=== PATIENT | female | born 1955 | race Caucasian/White ===

== ENCOUNTER → 2023-12-22 | Outpatient (CLI) | payer MEDICARE, OTHER, SELFPAY ==
--- NOTE | 2023-12-22 12:22 | US_ITS ---
STUDY: THYROID ULTRASOUND REASON FOR EXAM: Female, 68 years old. thyroid nodules TECHNIQUE: Ultrasound evaluation of the thyroid was performed with real-time and static hazel-scale imaging. COMPARISON: None. FINDINGS: RIGHT LOBE: The right lobe of the thyroid gland measures 4.7 x 1.8 x 1.8 cm. There is a homogeneous echotexture. Some tiny (less than 5 mm) hypoechoic nodules consistent with adenomas. LEFT LOBE: The left lobe of the thyroid gland measures 4.6 x 2.1 x 2.1 cm. There is a homogeneous echotexture. Nodule 1:6 x 5 x 6 mm cystic anechoic wider than tall smoothly marginated nodule with no echogenic foci (TR 1) in the mid left lobe consistent with an colloid cyst. Nodule 2:22 x 18 x 20 mm solid isoechoic wider than tall ill-defined margin nodule with no echogenic foci (TR 3) in the inferior left lobe and follow-up ultrasound is recommended in one year. ISTHMUS: The isthmus measures 2 mm thick. . The regional lymph nodes are normal. US/Thyroid IMPRESSION: Dominant nodule left lobe and follow-up ultrasound is recommended in one year. Electronically Signed: Abilio Byrne MD at 18:20 EDT ,
== END | disposition home or self-care (01) ==
PROVIDERS: PCP Family Medicine; Referring Provider Nurse Practitioner Family; Visit Provider Nurse Practitioner Family
DX: E04.9 Nontoxic goiter, unspecified (principal)
CPT/HCPCS: 76536

== ENCOUNTER → 2024-04-03 | Outpatient (CLI) | payer MEDICARE, OTHER, SELFPAY ==
--- NOTE | 2024-04-03 08:58 | BD_ITS ---
STUDY: DUAL ENERGY X-RAY ABSORPTIOMETRY / DXA REASON FOR EXAM: Female, 68 years old. M81.0 - Age-related osteoporosis without current pathological ... TECHNIQUE: Bone Mineral Density (BMD) measurements of lumbar spine and bilateral hips were obtained. COMPARISON: None. FINDINGS: Lumbar Spine (L1-L4): g/cm2 (0.812) / T-score (-2.1) / Z-score (-0.1) Findings are suggestive of osteopenia with a high fracture risk. Left Femur Total: g/cm2 (0.764) / T-score (-1.5) / Z-score (0.0) Left Femoral Neck: g/cm2 (0.717) / T-score (-1.2) / Z-score (0.5) Right Femur Total: g/cm2 (0.742) / T-score (-1.6) / Z-score (-0.2) Right Femoral Neck: g/cm2 (0.674) / T-score (-1.6) / Z-score (0.2) BD/Dexa Bone Density Study IMPRESSION: The patient is considered osteopenic as outlined below according to [employer] Organization (WHO) criteria with a high fracture risk. Reference Information: The T-score is the number of standard deviations above or below the standard which is normal for young adults at their peak bone mineral density. The World Health Organization (WHO) interprets the T-scores as follows: Above -1 Normal bone density Between -1 and -2.5 Osteopenia Equal to / or below -2.5 Osteoporosis As a practical clinical guideline, osteopenia may be graded as follows: Mild -1 through -1.5 Moderate -1.6 through -2.0 Severe -2.1 through -2.4 The Z-score is the number of standard deviations above or below age-matched controls. A Z-score of less than -1.5 would be considered abnormal. References: 1. NIH Osteoporosis and Related Bone Diseases www osteo.org 2. International Society for Clinical Densitometry www iscd.org 3. National Osteoporosis Foundation www nof.org Electronically Signed: Deon Valles MD at 13:56 EDT ,
--- OUTSIDE RECORDS SUMMARY | 2024-04-03 09:33 | XMS RPT_ITS | CCD ---
Author Organization [facility] Care Team Providers Care Ethylbenzene Cracking Supervisor Name Role Phone Christiano Edna Unavailable Unavailable PROVIDER, UNKNOWN Unavailable Unavailable Dinah Hudson Unavailable Unavailable Edna Alvarado Unavailable Unavailable PROVIDER, UNKNOWN Unavailable Unavailable Dinah Hudson Unavailable Unavailable Maikel Heath Unavailable Unavailable Dinah Hudson Unavailable Unavailable Zeynep Pedroza Unavailable Unavailable Shun Diaz Unavailable Gary HUDSON MD, DR DINAH Valerio Primary Care Physician [phone] NOREEN MONCADA DO Attending Unavailable JAYDE MEEHAN, DR DINAH Valerio Primary Care Unavailab NOREEN Bonner DO Attending Unavailable JAYDE MEEHAN, DR DINAH Valerio Primary Care Unavailab Keesha MEEHAN, DR DINAH Valerio Attending Unavailab Keesha MEEHAN, DR DINAH Valerio Primary Care Unavailab NOREEN Bonner DO Attending Unavailable JAYDE MEEHAN, DR DINAH Valerio Primary Care Unavailab Keesha MEEHAN, DR DINAH Valerio Attending Unavailab dc HUDSON MD, DR DINAH Valerio Primary Care Unavailab NOREEN Bonner DO Attending Unavailable JAYDE MEEHAN, DR DINAH Valerio Primary Care Unavailab NOREEN Bonner DO Attending Unavailable JAYDE MEEHAN, DR DINAH Valerio Primary Care Unavailab NOREEN Bonner DO Attending Unavailable JAYDE MEEHAN, DR DINAH Valerio Primary Care Unavailab Keesha MEEHAN, DR DINAH Valerio Attending Ashley Thao MD, DR DINAH Valerio Primary Care Unavailab dc Medications Current Medications Medication Drug Class(es) Dates Sig (Normalized) Sig (Original) atorvastatin 20 mg oral tablet (6 sources) HMG-CoA Reductase Inhibitor Start: 02-06-2015 atorvastatin 20 mg oral tablet Dose : 20 mg = 1 tab(s), Oral, qDay, # 30 tab(s), 0 Refill(s) Start Date: 02/06/15 Status: Ordered canagliflozin 300 mg oral tablet (6 sources) Sodium-Glucose Cotransporter 2 Inhibitor Start: 02-06-2015 Invokana 300 mg oral tablet Dose : 300 mg = 1 tab(s), Oral, qDay, # 30 tab(s), 0 Refill(s) Start Date: 02/06/15 Status: Ordered glimepiride 1 mg oral tablet (6 sources) Sulfonylurea Start: 02-06-2015 glimepiride 1 mg oral tablet Dose : 1 mg = 1 tab(s), Oral, qDay, # 30 tab(s), 0 Refill(s) Start Date: 02/06/15 Status: Ordered hydroCHLOROthiazide 12.5 mg / valsartan 80 mg oral tablet (6 sources) Thiazide Diuretic, Angiotensin 2 Receptor Anabelle Start: 02-06-2015 take 1 tablet by mouth once daily Diovan HCT 80 mg-12.5 mg oral tablet (NF) Dose = 1 tab(s), Oral, Daily, 0 Refill(s) Start Date: 02/06/15 Status: Ordered 24 hr metFORMIN hydrochloride 1000 mg / SITagliptin 50 mg extended release oral tablet (6 sources) Biguanide, Dipeptidyl Peptidase 4 Inhibitor Start: 02-06-2015 take 1 tablet by mouth once daily in the evening Janumet 50 / 1000 mg extended release oral tablet (NF) Dose = 1 tab(s), Oral, qPM, # 30 tab(s), 0 Refill(s) Start Date: 02/06/15 Status: Ordered Problems Active Problems Problem Classification Problem Date Documented Date Episodic/Chronic Complications of surgical procedures or medical care (2 sources) Prolapse of vaginal vault after hysterectomy; Translations: [Prolapse of vaginal vault after hysterectomy] Onset: 07-27-2017 Chronic Diabetes mellitus without complication (2 sources) Type 2 diabetes mellitus without complications; Translations: [Type 2 diabetes mellitus without complications] Onset: 07-27-2017 Chronic Disorders of lipid metabolism (2 sources) Hyperlipidemia, unspecified; Translations: [Hyperlipidemia, unspecified] Onset: 07-27-2017 Chronic Diverticulosis and diverticulitis (2 sources) Diverticulitis of intestine, part unspecified, without perforation or abscess without bleeding; Translations: [Dvtrcli of intest, part unsp, w/o perf or abscess w/o bleed] Onset: 07-27-2017 Chronic Essential hypertension (2 sources) Essential (primary) hypertension; Translations: [Essential (primary) hypertension] Onset: 07-27-2017 Chronic Genitourinary symptoms and ill-defined conditions (2 sources) Stress incontinence (female) (male); Translations: [Stress incontinence (female) (male)] Onset: 07-27-2017 Other nutritional; endocrine; and metabolic disorders (2 sources) Overweight; Translations: [Overweight] Onset: 07-27-2017 Chronic Other nutritional; endocrine; and metabolic disorders (1 source) Hypomagnesemia; Translations: [Hypomagnesemia] Chronic Prolapse of female genital organs (6 sources) Cystocele, unspecified; Translations: [Uterovaginal prolapse, unspecified] Onset: 07-20-2017 Chronic Unclassified (2 sources) longterm (current) use of oral hypoglycemic drugs; Translations: [longterm (current) use of oral hypoglycemic drugs] Onset: 07-20-2017 Unclassified (1 source) Unknown / UNK(Unknown) Onset: 10-26-2017 Past or Other Problems Problem Classification Problem Date Documented Da te Episodic/Chronic Calculus of urinary tract (2 sources) Personal history of urinary calculi; Translations: [Personal history of urinary calculi] Onset: 07-27-2017 Episodic Medical examination/evaluation (2 sources) Encounter for other preprocedural examination; Translations: [Encounter for other preprocedural examination] Onset: 07-20-2017 Episodic Other circulatory disease (1 source) Bleeding Onset: 10-26-2017 Episodic Other female genital disorders (2 sources) Other noninflammatory disorders of ovary, fallopian tube and broad ligament; Translations: [Oth noninflammatory disord of ovary, fallop and broad ligmt] Onset: 07-27-2017 Episodic Other gastrointestinal disorders (2 sources) Peritoneal adhesions (postprocedural) (postinfection); Translations: [Peritoneal adhesions (postprocedural) (postinfection)] Onset: 07-27-2017 Episodic Unclassified (4 sources) Acquired absence of both cervix and uterus; Translations: [Body mass index (BMI) 27.0-27.9, adult] Onset: 07-27-2017 Episodic Results Test Name Value Interpretation Reference Range Facility MA MAMMOGRAM SCREENING CLARI Londono/Kaleb 02-28-2024 MA MAMMOGRAM SCREENING BILATERAL W/MASSIMO ORIGINAL FROM: [facility] [place] [id number] [place], [place] [address] PROCEDURE FOR: [place] [address] Home: PID#: [id number] Exam#: [id number] : 1955 Age: 68 TO: DINAH HUDSON MD [address] [place] [address] [address] [place], [place] [address] EXAMINATION: SCREENING DIGITAL BILATERAL MAMMOGRAM WITH TOMOSYNTHESIS, 02/23/2024 9:26 am TECHNIQUE: Screening mammography of the bilateral breasts was performed with tomosynthesis. 2D standard and 3D tomosynthesis combination imaging performed through both breasts in the MLO and CC projection. Computer aided detection was utilized in the interpretation of this exam. COMPARISON: January 06, 2023, November 06, 2021, October 21, 2020 HISTORY: Breast cancer screening. FINDINGS: BREAST DENSITY: There are scattered areas of fibroglandular density. There is no suspicious mass, architectural distortion or microcalcification. Fibroglandular pattern is stable. IMPRESSION: No mammographic evidence of malignancy. Continued screening with annual mammograms is recommended. Garry Bowmanzick risk calculations, generated with the history provided, report this patient's 10 year risk and lifetime risk for developing breast cancer at 7.2% and 12.9%, respectively. Based on this assessment tool, if the patient's calculated lifetime risk is below 20%, then the patient is considered at average risk for developing breast cancer. If the patient's calculated lifetime risk is at or above 20%, then the patient is considered high risk for developing breast cancer and may be a candidate for supplemental breast MRI screening in addition to annual mammographic screening per the [employer]. BIRADS: MAMMOGRAM BI-RADS: 1: Negative RECALL: 1 year screening RECALL TYPE: mammo LETTER SENT: Normal BI-RADS 1 and 2 Interpreted by: Lyndsey Zamora Preliminary Report By: Lyndsey Zamora Electronically signed By Lyndsey Zamora Dictated Date: 02/28/2024 8:22:12 AM Prelim Date: 02/28/2024 8:37:41 AM Sign Date: 02/28/2024 8:37:41 AM Ordering Provider: DINAH HUDSON Digital Account Manager: GONZALEZ GRAHAM RT (R)(M) letter sent: Normal BI-RADS 1 and 2 Mammogram BI-RADS: 1 Negative Normal [facility] MGon 07-28-2023 Magnesium [Mass/Vol] 1.8 mg/dL Normal 1.8-2.4 [facility] ([place]) Comment on above: Performed By: #### C MP, TSH, MG, GFR, A1C #### [address] [address] .GFRon 07-07-2023 GFR 112 ml/min/1.73sqm Normal [facility] ([place]) Comment on above: Result Comment: GFR Population mean for , Non- Americans Ages 20-29 = 116 mL/min/1.73 sq.m. Ages 30-39 = 107 mL/min/1.73 sq.m. Ages 40-49 = 99 mL/min/1.73 sq.m. Ages 50-59 = 93 mL/min/1.73 sq.m. Ages 60-69 = 85 mL/min/1.73 sq.m. Ages 70+ = 75 mL/min/1.73 sq.m. Chronic Kidney Disease: Less than 60 mL/min/1.73 square meters End Stage Renal Disease: Less than 15 mL/min/1.73 square meters Performed By: #### C MP, TSH, MG, GFR, A1C #### [address] [address] GFR Non- 92 ml/min/1.73sqm Normal [facility] ([place]) Comment on above: Result Comment: GFR Population mean for , Non- Americans Ages 20-29 = 116 mL/min/1.73 sq.m. Ages 30-39 = 107 mL/min/1.73 sq.m. Ages 40-49 = 99 mL/min/1.73 sq.m. Ages 50-59 = 93 mL/min/1.73 sq.m. Ages 60-69 = 85 mL/min/1.73 sq.m. Ages 70+ = 75 mL/min/1.73 sq.m. Chronic Kidney Disease: Less than 60 mL/min/1.73 square meters End Stage Renal Disease: Less than 15 mL/min/1.73 square meters Performed By: #### C MP, TSH, MG, GFR, A1C #### [address] [address] A1Con 07-07-2023 HbA1c (Bld) [Mass fraction] 6.1 % Normal 4.3-6.4 [facility] ([place]) Comment on above: Performed By: #### C MP, TSH, MG, GFR, A1C #### [address] [address] CMPon 07-07-2023 Albumin Level 3.9 G/dL Normal 3.4-4.8 [facility] ([place]) Comment on above: Performed By: #### C MP, TSH, MG, GFR, A1C #### [address] [address] Albumin/Globulin [Mass ratio] 1.6 {ratio} Normal 1.1-2.5 [facility] ([place]) Comment on above: Performed By: #### C MP, TSH, MG, GFR, A1C #### [address] [address] ALP [Catalytic activity/Vol] 57 U/L Normal 40-135 [facility] ([place]) Comment on above: Performed By: #### C MP, TSH, MG, GFR, A1C #### [address] [address] ALT [Catalytic activity/Vol] 20 U/L Normal 14-59 [facility] ([place]) Comment on above: Performed By: #### C MP, TSH, MG, GFR, A1C #### [address] [address] AST [Catalytic activity/Vol] 16 U/L Normal 10-40 [facility] ([place]) Comment on above: Performed By: #### C MP, TSH, MG, GFR, A1C #### [address] [address] Bili Total 0.7 mg/dL Normal 0.2-1.0 [facility] ([place]) Comment on above: Result Comment: Use of this assay is not recommended for patients undergoing treatment with eltrombopag due to the potential for falsely elevated results. Performed By: #### C MP, TSH, MG, GFR, A1C #### [address] [address] BUN/Creatinine Ratio 23 ratio Normal 7-27 [facility] ([place]) Comment on above: Performed By: #### C MP, TSH, MG, GFR, A1C #### [address] [address] Calcium [Mass/Vol] 9.8 mg/dL Normal 8.4-10.2 [facility] ([place]) Comment on above: Performed By: #### C MP, TSH, MG, GFR, A1C #### [address] [address] Chloride [Moles/Vol] 102 mmol/L Normal 98-107 [facility] ([place]) Comment on above: Performed By: #### C MP, TSH, MG, GFR, A1C #### [address] [address] CO2 [Moles/Vol] 34 mmol/L High 23-31 [facility] ([place]) Comment on above: Performed By: #### C MP, TSH, MG, GFR, A1C #### [address] [address] Creatinine [Mass/Vol] 0.64 mg/dL Normal 0.55-1.02 [facility] ([place]) Comment on above: Performed By: #### C MP, TSH, MG, GFR, A1C #### [address] [address] Electrolyte Balance 10.0 mEq/L Normal 4.0-15.0 [facility] ([place]) Comment on above: Performed By: #### C MP, TSH, MG, GFR, A1C #### [address] [address] Globulin 2.4 G/dL Normal [facility] ([place]) Comment on above: Performed By: #### C MP, TSH, MG, GFR, A1C #### [address] [address] Glucose [Mass/Vol] 124 mg/dL High 80-115 [facility] ([place]) Comment on above: Performed By: #### C MP, TSH, MG, GFR, A1C #### [address] [address] Potassium [Moles/Vol] 4.0 mmol/L Normal 3.5-5.1 [facility] ([place]) Comment on above: Performed By: #### C MP, TSH, MG, GFR, A1C #### [address] [address] Sodium [Moles/Vol] 146 mmol/L High 136-145 [facility] ([place]) Comment on above: Performed By: #### C MP, TSH, MG, GFR, A1C #### [address] [address] Total Protein 6.3 G/dL Low 6.4-8.2 [facility] ([place]) Comment on above: Performed By: #### C MP, TSH, MG, GFR, A1C #### [address] [address] Urea nitrogen [Mass/Vol] 15 mg/dL Normal 7-18 [facility] ([place]) Comment on above: Performed By: #### C MP, TSH, MG, GFR, A1C #### [address] [address] MGon 07-07-2023 Magnesium [Mass/Vol] 1.5 mg/dL Low 1.8-2.4 [facility] ([place]) Comment on above: Performed By: #### C MP, TSH, MG, GFR, A1C #### [address] [address] TSHon 07-07-2023 TSH Qn 1.26 m[IU]/L Normal 0.36-3.74 [facility] ([place]) Comment on above: Performed By: #### C MP, TSH, MG, GFR, A1C #### [address] [address] .Auto Diffon 04-26-2023 Basophil, Absolute 0.0 10 3/mcL Normal 0.0-0.2 [facility] ([place]) Comment on above: Performed By: #### C MP, TSH, MG, GFR, A1C #### [address] [address] Basophils/100 WBC (Bld) 0.5 % Normal 0.0-2.5 [facility] ([place]) Comment on above: Performed By: #### C MP, TSH, MG, GFR, A1C #### [address] [address] Eosinophil, Absolute 0.1 10 3/mcL Normal 0.0-0.4 [facility] ([place]) Comment on above: Performed By: #### C MP, TSH, MG, GFR, A1C #### [address] [address] Eosinophils/100 WBC (Bld) 1.4 % Normal 0.0-7.0 [facility] ([place]) Comment on above: Performed By: #### C MP, TSH, MG, GFR, A1C #### [address] [address] Lymphocyte, Absolute 1.8 10 3/mcL Normal 0.8-3.9 [facility] ([place]) Comment on above: Performed By: #### C MP, TSH, MG, GFR, A1C #### [address] [address] Lymphocytes/100 WBC (Bld) 31.2 % Normal 10.0-50.0 [facility] ([place]) Comment on above: Performed By: #### C MP, TSH, MG, GFR, A1C #### [address] [address] Monocyte, Absolute 0.4 10 3/mcL Normal 0.2-1.0 [facility] ([place]) Comment on above: Performed By: #### C MP, TSH, MG, GFR, A1C #### [address] [address] Monocytes/100 WBC (Bld) 7.4 % Normal 1.7-13.0 [facility] ([place]) Comment on above: Performed By: #### C MP, TSH, MG, GFR, A1C #### [address] [address] Neutrophils/100 WBC (Bld) 59.5 % Normal 37.0-80.0 [facility] ([place]) Comment on above: Performed By: #### C MP, TSH, MG, GFR, A1C #### [address] [address] .NEUABSon 04-26-2023 Neutrophil, Absolute 3.4 10 3/mcL Normal 2.9-6.2 [facility] ([place]) Comment on above: Performed By: #### C MP, TSH, MG, GFR, A1C #### [address] [address] CBCon 04-26-2023 Erythrocyte distribution width (RBC) [Ratio] 14.0 % Normal 11.5-14.5 [facility] ([place]) Comment on above: Performed By: #### C MP, TSH, MG, GFR, A1C #### [address] [address] Hematocrit (Bld) [Volume fraction] 40.6 % Normal 37.0-47.0 [facility] ([place]) Comment on above: Performed By: #### C MP, TSH, MG, GFR, A1C #### [address] [address] Hgb 13.9 G/dL Normal 12.0-16.0 [facility] ([place]) Comment on above: Performed By: #### C MP, TSH, MG, GFR, A1C #### [address] [address] MCH (RBC) [Entitic mass] 30.3 pg Normal 27.0-31.2 [facility] ([place]) Comment on above: Performed By: #### C MP, TSH, MG, GFR, A1C #### [address] [address] MCHC 34.2 G/dL Normal 33.0-37.0 [facility] ([place]) Comment on above: Performed By: #### C MP, TSH, MG, GFR, A1C #### [address] [address] MCV (RBC) [Entitic vol] 88.7 fL Normal 80.0-94.0 [facility] ([place]) Comment on above: Performed By: #### C MP, TSH, MG, GFR, A1C #### [address] [address] Platelet 205 10 3/mcL Normal 130-400 [facility] ([place]) Comment on above: Performed By: #### C MP, TSH, MG, GFR, A1C #### [address] [address] Platelet mean volume (Bld) [Entitic vol] 8.3 fL Normal 7.4-10.4 [facility] ([place]) Comment on above: Performed By: #### C MP, TSH, MG, GFR, A1C #### [address] [address] RBC 4.57 10 6/mcL Normal 4.20-5.40 [facility] ([place]) Comment on above: Performed By: #### C MP, TSH, MG, GFR, A1C #### [address] [address] WBC 5.7 10 3/mcL Normal 4.6-10.8 [facility] ([place]) Comment on above: Performed By: #### C MP, TSH, MG, GFR, A1C #### [address] [address] FEon 04-26-2023 Iron [Mass/Vol] 82 ug/dL Normal 50-170 [facility] ([place]) Comment on above: Performed By: #### C MP, TSH, MG, GFR, A1C #### [address] [address] Kennedi 04-26-2023 Ferritin [Mass/Vol] 27.0 ng/mL Normal 8.0-252.0 [facility] ([place]) Comment on above: Performed By: #### C MP, TSH, MG, GFR, A1C #### [address] [address] .GFRon 03-17-2023 GFR Non- 91 ml/min/1.73sqm Normal [facility] ([place]) Comment on above: Result Comment: GFR Population mean for , Non- Americans Ages 20-29 = 116 mL/min/1.73 sq.m. Ages 30-39 = 107 mL/min/1.73 sq.m. Ages 40-49 = 99 mL/min/1.73 sq.m. Ages 50-59 = 93 mL/min/1.73 sq.m. Ages 60-69 = 85 mL/min/1.73 sq.m. Ages 70+ = 75 mL/min/1.73 sq.m. Chronic Kidney Disease: Less than 60 mL/min/1.73 square meters End Stage Renal Disease: Less than 15 mL/min/1.73 square meters Performed By: #### C MP, TSH, MG, GFR, A1C #### [address] [address] GFR 110 ml/min/1.73sqm Normal [facility] ([place]) Comment on above: Result Comment: GFR Population mean for , Non- Americans Ages 20-29 = 116 mL/min/1.73 sq.m. Ages 30-39 = 107 mL/min/1.73 sq.m. Ages 40-49 = 99 mL/min/1.73 sq.m. Ages 50-59 = 93 mL/min/1.73 sq.m. Ages 60-69 = 85 mL/min/1.73 sq.m. Ages 70+ = 75 mL/min/1.73 sq.m. Chronic Kidney Disease: Less than 60 mL/min/1.73 square meters End Stage Renal Disease: Less than 15 mL/min/1.73 square meters Performed By: #### C MP, TSH, MG, GFR, A1C #### [address] [address] A1Con 03-17-2023 HbA1c (Bld) [Mass fraction] 6.1 % Normal 4.3-6.4 [facility] ([place]) Comment on above: Performed By: #### C MP, TSH, MG, GFR, A1C #### [address] [address] CMPon 03-17-2023 Albumin Level 4.1 G/dL Normal 3.4-4.8 [facility] ([place]) Comment on above: Performed By: #### C MP, TSH, MG, GFR, A1C #### [address] [address] Albumin/Globulin [Mass ratio] 1.8 {ratio} Normal 1.1-2.5 [facility] ([place]) Comment on above: Performed By: #### C MP, TSH, MG, GFR, A1C #### [address] [address] ALP [Catalytic activity/Vol] 62 U/L Normal 40-135 [facility] ([place]) Comment on above: Performed By: #### C MP, TSH, MG, GFR, A1C #### [address] [address] ALT [Catalytic activity/Vol] 19 U/L Normal 14-59 [facility] ([place]) Comment on above: Performed By: #### C MP, TSH, MG, GFR, A1C #### [address] [address] AST [Catalytic activity/Vol] 16 U/L Normal 10-40 [facility] ([place]) Comment on above: Performed By: #### C MP, TSH, MG, GFR, A1C #### [address] [address] Bili Total 0.9 mg/dL Normal 0.2-1.0 [facility] ([place]) Comment on above: Result Comment: Use of this assay is not recommended for patients undergoing treatment with eltrombopag due to the potential for falsely elevated results. Performed By: #### C MP, TSH, MG, GFR, A1C #### [address] [address] BUN/Creatinine Ratio 29 ratio High 7-27 [facility] ([place]) Comment on above: Performed By: #### C MP, TSH, MG, GFR, A1C #### [address] [address] Calcium [Mass/Vol] 9.1 mg/dL Normal 8.4-10.2 [facility] ([place]) Comment on above: Performed By: #### C MP, TSH, MG, GFR, A1C #### [address] [address] Chloride [Moles/Vol] 103 mmol/L Normal 98-107 [facility] ([place]) Comment on above: Performed By: #### C MP, TSH, MG, GFR, A1C #### [address] [address] CO2 [Moles/Vol] 33 mmol/L High 23-31 [facility] ([place]) Comment on above: Performed By: #### C MP, TSH, MG, GFR, A1C #### [address] [address] Creatinine [Mass/Vol] 0.65 mg/dL Normal 0.55-1.02 [facility] ([place]) Comment on above: Performed By: #### C MP, TSH, MG, GFR, A1C #### [address] [address] Electrolyte Balance 6.0 mEq/L Normal 4.0-15.0 [facility] ([place]) Comment on above: Performed By: #### C MP, TSH, MG, GFR, A1C #### [address] [address] Globulin 2.3 G/dL Normal [facility] ([place]) Comment on above: Performed By: #### C MP, TSH, MG, GFR, A1C #### [address] [address] Glucose [Mass/Vol] 122 mg/dL High 80-115 [facility] ([place]) Comment on above: Performed By: #### C MP, TSH, MG, GFR, A1C #### [address] [address] Potassium [Moles/Vol] 4.3 mmol/L Normal 3.5-5.1 [facility] ([place]) Comment on above: Performed By: #### C MP, TSH, MG, GFR, A1C #### [address] [address] Sodium [Moles/Vol] 142 mmol/L Normal 136-145 [facility] ([place]) Comment on above: Performed By: #### C MP, TSH, MG, GFR, A1C #### [address] [address] Total Protein 6.4 G/dL Normal 6.4-8.2 [facility] ([place]) Comment on above: Performed By: #### C MP, TSH, MG, GFR, A1C #### [address] [address] Urea nitrogen [Mass/Vol] 19 mg/dL High 7-18 [facility] ([place]) Comment on above: Performed By: #### C MP, TSH, MG, GFR, A1C #### [address] [address] LABORATORYOrdered By: SYSTEM SYSTEM on 03-17-2023 Albumin BCP dye [Mass/Vol] 4.1 G/dL Invalid Interpretation Code 3.4 - 4.8 G/dL AO ADM SS Albumin/Globulin [Mass ratio] 1.8 {ratio} Invalid Interpretation Code 1.1 - 2.5 ratio AO ADM SS ALP [Catalytic activity/Vol] 62 U/L Invalid Interpretation Code 40 - 135 U/L AO ADM SS ALT With P-5'-P [Catalytic activity/Vol] 19 U/L Invalid Interpretation Code 14 - 59 U/L AO ADM SS AST With P-5'-P [Catalytic activity/Vol] 16 U/L Invalid Interpretation Code 10 - 40 U/L AO ADM SS Bilirubin [Mass/Vol] 0.9 mg/dL Invalid Interpretation Code 0.2 - 1.0 mg/dL AO ADM SS Comment on above: Interpretive Data: U se of this assay is not recommended for patients undergoing treatment with eltrombopag due to the potential for falsely elevated results. Calcium [Mass/Vol] 9.1 mg/dL Invalid Interpretation Code 8.4 - 10.2 mg/dL AO ADM SS Chloride [Moles/Vol] 103 mmol/L Invalid Interpretation Code 98 - 107 mmol/L AO ADM SS CO2 [Moles/Vol] 33 mmol/L Invalid Interpretation Code 23 - 31 mmol/L AO ADM SS Creatinine [Mass/Vol] 0.65 mg/dL Invalid Interpretation Code 0.55 - 1.02 mg/dL AO ADM SS Electrolyte Balance 6.0 mEq/L Invalid Interpretation Code 4.0 - 15.0 mEq/L AO ADM SS GFR/1.73 sq M.predicted among blacks MDRD (S/P/Bld) [Vol rate/Area] 110 ml/min/1.73sqm Invalid Interpretation Code AO Chemistry S Comment on above: Interpretive Data: GFR Population mean for , Non- Americans Ages 20-29 = 116 mL/min/1.73 sq.m. Ages 30-39 = 107 mL/min/1.73 sq.m. Ages 40-49 = 99 mL/min/1.73 sq.m. Ages 50-59 = 93 mL/min/1.73 sq.m. Ages 60-69 = 85 mL/min/1.73 sq.m. Ages 70+ = 75 mL/min/1.73 sq.m. Chronic Kidney Disease: Less than 60 mL/min/1.73 square meters End Stage Renal Disease: Less than 15 mL/min/1.73 square meters GFR/1.73 sq M.predicted among non-blacks MDRD (S/P/Bld) [Vol rate/Area] 91 ml/min/1.73sqm Invalid Interpretation Code AO Chemistry S Comment on above: Interpretive Data: GFR Population mean for , Non- Americans Ages 20-29 = 116 mL/min/1.73 sq.m. Ages 30-39 = 107 mL/min/1.73 sq.m. Ages 40-49 = 99 mL/min/1.73 sq.m. Ages 50-59 = 93 mL/min/1.73 sq.m. Ages 60-69 = 85 mL/min/1.73 sq.m. Ages 70+ = 75 mL/min/1.73 sq.m. Chronic Kidney Disease: Less than 60 mL/min/1.73 square meters End Stage Renal Disease: Less than 15 mL/min/1.73 square meters Globulin 2.3 G/dL Invalid Interpretation Code AO ADM SS Glucose [Mass/Vol] 122 mg/dL Invalid Interpretation Code 80 - 115 mg/dL AO ADM SS HbA1c (Bld) [Mass fraction] 6.1 % Invalid Interpretation Code 4.3 - 6.4 % AO ADM SS Potassium [Moles/Vol] 4.3 mmol/L Invalid Interpretation Code 3.5 - 5.1 mmol/L AO ADM SS Protein [Mass/Vol] 6.4 G/dL Invalid Interpretation Code 6.4 - 8.2 G/dL AO ADM SS Sodium [Moles/Vol] 142 mmol/L Invalid Interpretation Code 136 - 145 mmol/L AO ADM SS Urea nitrogen [Mass/Vol] 19 mg/dL Invalid Interpretation Code 7 - 18 mg/dL AO ADM SS Urea nitrogen/Creatinin e [Mass ratio] 29 ratio Invalid Interpretation Code 7 - 27 ratio AO ADM SS LABORATORYOrdered By: Jayde Salazar on 03-17-2023 Cholesterol [Mass/Vol] 101 mg/dL Invalid Interpretation Code 0 - 200 mg/dL AO ADM SS Comment on above: Interpretive Data: C holesterol Reference Interval: Less than 200 Desirable 200-239 Borderline high risk 240 and above High risk Cholesterol in HDL [Mass/Vol] 43 mg/dL Invalid Interpretation Code 40 - 60 mg/dL AO ADM SS Cholesterol in LDL [Mass/Vol] 34 mg/dL Invalid Interpretation Code 0 - 130 mg/dL AO ADM SS Triglyceride [Mass/Vol] 122 mg/dL Invalid Interpretation Code 0 - 150 mg/dL AO ADM SS Comment on above: Interpretive Data: T riglyceride Reference Interval: Less than 150 Normal 150-199 Borderline high risk 200-499 High risk 500 or higher Very high risk LIPIDon 03-17-2023 Cholesterol [Mass/Vol] 101 mg/dL Normal 0-200 [facility] ([place]) Comment on above: Result Comment: Chol esterol Reference Interval: Less than 200 Desirable 200-239 Borderline high risk 240 and above High risk Performed By: #### C MP, TSH, MG, GFR, A1C #### [address] [address] Cholesterol in HDL [Mass/Vol] 43 mg/dL Normal 40-60 [facility] ([place]) Comment on above: Performed By: #### C MP, TSH, MG, GFR, A1C #### [address] [address] Cholesterol in LDL [Mass/Vol] 34 mg/dL Normal 0-130 [facility] ([place]) Comment on above: Performed By: #### C MP, TSH, MG, GFR, A1C #### [address] [address] Triglyceride [Mass/Vol] 122 mg/dL Normal 0-150 [facility] ([place]) Comment on above: Result Comment: Trig lyceride Reference Interval: Less than 150 Normal 150-199 Borderline high risk 200-499 High risk 500 or higher Very high risk Performed By: #### C MP, TSH, MG, GFR, A1C #### [address] [address] [place] MAMMOGRAM SCREENING BILAT ERAL W/TOMOon 01-06-2023 MA MAMMOGRAM SCREENING BILATERAL W/MASSIMO ORIGINAL FROM: [address] [address] PROCEDURE FOR: [place] [id number] Home: PID#: [id number] Exam#: [id number] : 1955 Age: 67 TO: DINAH HUDSON MD [address] [place] [address] EXAMINATION: SCREENING DIGITAL BILATERAL MAMMOGRAM WITH TOMOSYNTHESIS, 01/06/2023 8:40 am TECHNIQUE: Screening mammography of the bilateral breasts was performed with tomosynthesis. 2D standard and 3D tomosynthesis combination imaging performed through both breasts in the MLO and CC projection. Computer aided detection was utilized in the interpretation of this exam. COMPARISON: 11/06/2021, 10/21/2020 HISTORY: Breast cancer screening FINDINGS: BREAST DENSITY: Scattered fibroglandular tissue There are no significant masses or calcifications. IMPRESSION: No mammographic evidence of malignancy. Continued screening with annual mammograms is recommended. BIRADS: MAMMOGRAM BI-RADS: 1: Negative RECALL: 1 year screening RECALL TYPE: mammo LETTER SENT: Normal BI-RADS 1 and 2 Interpreted by: Dorothy Freeman MD Preliminary Report By: Dorothy Freeman MD Electronically signed By Dorothy Freeman MD Dictated Date: 01/06/2023 8:51:31 PM Prelim Date: 01/06/2023 8:59:31 PM Sign Date: 01/06/2023 8:59:31 PM Ordering Provider: DINAH HUDSON Digital Account Manager: ALMA SAXENA RT (R) (M) (CT) letter sent: Normal BI-RADS 1 and 2 Mammogram BI-RADS: 1 Negative Normal [facility] ([place]) .GFRon 12-12-2022 GFR 108 ml/min/1.73sqm Normal [facility] ([place]) Comment on above: Result Comment: GFR Population mean for , Non- Americans Ages 20-29 = 116 mL/min/1.73 sq.m. Ages 30-39 = 107 mL/min/1.73 sq.m. Ages 40-49 = 99 mL/min/1.73 sq.m. Ages 50-59 = 93 mL/min/1.73 sq.m. Ages 60-69 = 85 mL/min/1.73 sq.m. Ages 70+ = 75 mL/min/1.73 sq.m. Chronic Kidney Disease: Less than 60 mL/min/1.73 square meters End Stage Renal Disease: Less than 15 mL/min/1.73 square meters Performed By: #### C MP, TSH, MG, GFR, A1C #### Perfecto [address] [address] GFR Non- 89 ml/min/1.73sqm Normal [facility] ([place]) Comment on above: Result Comment: GFR Population mean for , Non- Americans Ages 20-29 = 116 mL/min/1.73 sq.m. Ages 30-39 = 107 mL/min/1.73 sq.m. Ages 40-49 = 99 mL/min/1.73 sq.m. Ages 50-59 = 93 mL/min/1.73 sq.m. Ages 60-69 = 85 mL/min/1.73 sq.m. Ages 70+ = 75 mL/min/1.73 sq.m. Chronic Kidney Disease: Less than 60 mL/min/1.73 square meters End Stage Renal Disease: Less than 15 mL/min/1.73 square meters Performed By: #### C MP, TSH, MG, GFR, A1C #### [address] [address] A1Con 12-12-2022 HbA1c (Bld) [Mass fraction] 6.0 % Normal 4.3-6.4 [facility] ([place]) Comment on above: Performed By: #### C MP, TSH, MG, GFR, A1C #### [address] [address] CMPon 12-12-2022 Albumin Level 3.9 G/dL Normal 3.4-4.8 [facility] ([place]) Comment on above: Performed By: #### C MP, TSH, MG, GFR, A1C #### [address] [address] Albumin/Globulin [Mass ratio] 1.7 {ratio} Normal 1.1-2.5 [facility] ([place]) Comment on above: Performed By: #### C MP, TSH, MG, GFR, A1C #### [address] [address] ALP [Catalytic activity/Vol] 53 U/L Normal 40-135 [facility] ([place]) Comment on above: Performed By: #### C MP, TSH, MG, GFR, A1C #### [address] [address] ALT [Catalytic activity/Vol] 20 U/L Normal 14-59 [facility] ([place]) Comment on above: Performed By: #### C MP, TSH, MG, GFR, A1C #### [address] [address] AST [Catalytic activity/Vol] 18 U/L Normal 10-40 [facility] ([place]) Comment on above: Performed By: #### C MP, TSH, MG, GFR, A1C #### [address] [address] Bili Total 0.8 mg/dL Normal 0.2-1.0 [facility] ([place]) Comment on above: Result Comment: Use of this assay is not recommended for patients undergoing treatment with eltrombopag due to the potential for falsely elevated results. Performed By: #### C MP, TSH, MG, GFR, A1C #### [address] [address] BUN/Creatinine Ratio 27 ratio Normal 7-27 [facility] ([place]) Comment on above: Performed By: #### C MP, TSH, MG, GFR, A1C #### [address] [address] Calcium [Mass/Vol] 9.1 mg/dL Normal 8.4-10.2 [facility] ([place]) Comment on above: Performed By: #### C MP, TSH, MG, GFR, A1C #### [address] [address] Chloride [Moles/Vol] 104 mmol/L Normal 98-107 [facility] ([place]) Comment on above: Performed By: #### C MP, TSH, MG, GFR, A1C #### [address] [address] CO2 [Moles/Vol] 34 mmol/L High 23-31 [facility] ([place]) Comment on above: Performed By: #### C MP, TSH, MG, GFR, A1C #### [address] [address] Creatinine [Mass/Vol] 0.66 mg/dL Normal 0.55-1.02 [facility] ([place]) Comment on above: Performed By: #### C MP, TSH, MG, GFR, A1C #### [address] [address] Electrolyte Balance 5.0 mEq/L Normal 4.0-15.0 [facility] ([place]) Comment on above: Performed By: #### C MP, TSH, MG, GFR, A1C #### [address] [address] Globulin 2.3 G/dL Normal [facility] ([place]) Comment on above: Performed By: #### C MP, TSH, MG, GFR, A1C #### [address] [address] Glucose [Mass/Vol] 84 mg/dL Normal 80-115 [facility] ([place]) Comment on above: Performed By: #### C MP, TSH, MG, GFR, A1C #### [address] [address] Potassium [Moles/Vol] 4.1 mmol/L Normal 3.5-5.1 [facility] ([place]) Comment on above: Performed By: #### C MP, TSH, MG, GFR, A1C #### [address] [address] Sodium [Moles/Vol] 143 mmol/L Normal 136-145 [facility] ([place]) Comment on above: Performed By: #### C MP, TSH, MG, GFR, A1C #### [address] [address] Total Protein 6.2 G/dL Low 6.4-8.2 [facility] ([place]) Comment on above: Performed By: #### C MP, TSH, MG, GFR, A1C #### [address] [address] Urea nitrogen [Mass/Vol] 18 mg/dL Normal 7-18 [facility] ([place]) Comment on above: Performed By: #### C MP, TSH, MG, GFR, A1C #### [address] [address] MGon 12-12-2022 Magnesium [Mass/Vol] 1.8 mg/dL Normal 1.8-2.4 [facility] ([place]) Comment on above: Performed By: #### C MP, TSH, MG, GFR, A1C #### [place] [address] [address] LABORATORYOrdered By: SYSTEM SYSTEM on 09-20-2022 Magnesium [Mass/Vol] 1.9 mg/dL Invalid Interpretation Code 1.8 - 2.4 mg/dL AO ADM SS MGon 09-20-2022 Magnesium [Mass/Vol] 1.9 mg/dL Normal 1.8-2.4 [facility] ([place]) Comment on above: Performed By: #### C MP, TSH, MG, GFR, A1C #### [place] [address] [address] .GFROrdered By: SYSTEM SYSTE M on 09-01-2022 GFR Non- 94 ml/min/1.73sqm Normal AO Chemistry S Comment on above: Result Comment: GFR Population mean for , Non- Americans Ages 20-29 = 116 mL/min/1.73 sq.m. Ages 30-39 = 107 mL/min/1.73 sq.m. Ages 40-49 = 99 mL/min/1.73 sq.m. Ages 50-59 = 93 mL/min/1.73 sq.m. Ages 60-69 = 85 mL/min/1.73 sq.m. Ages 70+ = 75 mL/min/1.73 sq.m. Chronic Kidney Disease: Less than 60 mL/min/1.73 square meters End Stage Renal Disease: Less than 15 mL/min/1.73 square meters Performed By: #### C MP, TSH, MG, GFR, A1C #### [place] [address] [address] GFR 114 ml/min/1.73sqm Normal AO Chemistry S Comment on above: Result Comment: GFR Population mean for , Non- Americans Ages 20-29 = 116 mL/min/1.73 sq.m. Ages 30-39 = 107 mL/min/1.73 sq.m. Ages 40-49 = 99 mL/min/1.73 sq.m. Ages 50-59 = 93 mL/min/1.73 sq.m. Ages 60-69 = 85 mL/min/1.73 sq.m. Ages 70+ = 75 mL/min/1.73 sq.m. Chronic Kidney Disease: Less than 60 mL/min/1.73 square meters End Stage Renal Disease: Less than 15 mL/min/1.73 square meters Performed By: #### C MP, TSH, MG, GFR, A1C #### [address] [address] [id number] By: SYSTEM SYSTEM on 09-01-2022 HbA1c (Bld) [Mass fraction] 5.7 % Normal 4.3-6.4 AO ADM SS Comment on above: Performed By: #### V IDH, CMP, MG, TSH, LIP, GFR, A1C #### [address] [address] #### PTH #### [place] [address] CMPon 09-01-2022 Albumin Level 4.4 G/dL Normal 3.4-4.8 [facility] ([place]) Comment on above: Performed By: #### C MP, TSH, MG, GFR, A1C #### [address] [address] ALT [Catalytic activity/Vol] 21 U/L Normal 14-59 [facility] ([place]) Comment on above: Performed By: #### C MP, TSH, MG, GFR, A1C #### [address] [address] AST [Catalytic activity/Vol] 18 U/L Normal 10-40 [facility] ([place]) Comment on above: Performed By: #### C MP, TSH, MG, GFR, A1C #### [address] [address] Bili Total 0.9 mg/dL Normal 0.2-1.0 [facility] ([place]) Comment on above: Result Comment: Use of this assay is not recommended for patients undergoing treatment with eltrombopag due to the potential for falsely elevated results. Performed By: #### C MP, TSH, MG, GFR, A1C #### [address] [address] BUN/Creatinine Ratio 37 ratio High 7-27 [facility] ([place]) Comment on above: Performed By: #### C MP, TSH, MG, GFR, A1C #### [address] [address] Total Protein 6.7 G/dL Normal 6.4-8.2 [facility] ([place]) Comment on above: Performed By: #### C MP, TSH, MG, GFR, A1C #### [address] [address] CMPOrdered By: SYSTEM SYSTEM on 09-01-2022 Albumin/Globulin [Mass ratio] 1.9 {ratio} Normal 1.1-2.5 AO ADM SS Comment on above: Performed By: #### C MP, TSH, MG, GFR, A1C #### [address] [address] ALP [Catalytic activity/Vol] 66 U/L Normal 40-135 AO ADM SS Comment on above: Performed By: #### C MP, TSH, MG, GFR, A1C #### [address] [address] Calcium [Mass/Vol] 9.5 mg/dL Normal 8.4-10.2 AO ADM SS Comment on above: Performed By: #### C MP, TSH, MG, GFR, A1C #### [address] [address] Chloride [Moles/Vol] 102 mmol/L Normal 98-107 AO ADM SS Comment on above: Performed By: #### C MP, TSH, MG, GFR, A1C #### [address] [address] CO2 [Moles/Vol] 34 mmol/L High 23-31 AO ADM SS Comment on above: Performed By: #### C MP, TSH, MG, GFR, A1C #### [address] [address] Creatinine [Mass/Vol] 0.63 mg/dL Normal 0.55-1.02 AO ADM SS Comment on above: Performed By: #### C MP, TSH, MG, GFR, A1C #### [address] [address] Electrolyte Balance 6.0 mEq/L Normal 4.0-15.0 AO ADM SS Comment on above: Performed By: #### C MP, TSH, MG, GFR, A1C #### [address] [address] Globulin 2.3 G/dL Normal AO ADM SS Comment on above: Performed By: #### C MP, TSH, MG, GFR, A1C #### [address] [address] Glucose [Mass/Vol] 101 mg/dL Normal 80-115 AO ADM SS Comment on above: Performed By: #### C MP, TSH, MG, GFR, A1C #### [address] [address] Potassium [Moles/Vol] 4.2 mmol/L Normal 3.5-5.1 AO ADM SS Comment on above: Performed By: #### C MP, TSH, MG, GFR, A1C #### [address] [address] Sodium [Moles/Vol] 142 mmol/L Normal 136-145 AO ADM SS Comment on above: Performed By: #### C MP, TSH, MG, GFR, A1C #### [address] [address] Urea nitrogen [Mass/Vol] 23 mg/dL High 7-18 AO ADM SS Comment on above: Performed By: #### C MP, TSH, MG, GFR, A1C #### [address] [address] LABORATORYOrdered By: SYSTEM SYSTEM on 09-01-2022 Albumin BCP dye [Mass/Vol] 4.4 G/dL Invalid Interpretation Code 3.4 - 4.8 G/dL AO ADM SS ALT With P-5'-P [Catalytic activity/Vol] 21 U/L Invalid Interpretation Code 14 - 59 U/L AO ADM SS AST With P-5'-P [Catalytic activity/Vol] 18 U/L Invalid Interpretation Code 10 - 40 U/L AO ADM SS Bilirubin [Mass/Vol] 0.9 mg/dL Invalid Interpretation Code 0.2 - 1.0 mg/dL AO ADM SS Lipase [Catalytic activity/Vol] 63 U/L Invalid Interpretation Code 16 - 77 U/L AO ADM SS Parathyrin.intact [Mass/Vol] 13.5 pg/mL Invalid Interpretation Code 18.5 - 88.0 pg/mL AH ADM SS Protein [Mass/Vol] 6.7 G/dL Invalid Interpretation Code 6.4 - 8.2 G/dL AO ADM SS Urea nitrogen/Creatinin e [Mass ratio] 37 ratio Invalid Interpretation Code 7 - 27 ratio AO ADM SS LABORATORYOrdered By: Sheela Silvestre on 09-01-2022 Albumin DL <= 20 mg/L (U) [Mass/Vol] 1491 mcg/dL Invalid Interpretation Code AO ADM SS Albumin/Creatinine DL <= 20 mg/L (U) [Mass ratio] 16 mcg/mg Invalid Interpretation Code 0 - 30 mcg/mg AO ADM SS Creatinine (U) [Mass/Vol] 90.7 mg/dL Invalid Interpretation Code 28.0 - 117.0 mg/dL AO ADM SS LIPon 09-01-2022 Lipase Level 63 U/L Normal 16-77 [facility] ([place]) Comment on above: Performed By: #### V IDH, CMP, MG, TSH, LIP, GFR, A1C #### [address] [address] #### PTH #### [place] [address] MALBRon 09-01-2022 U Creatinine 90.7 mg/dL Normal 28.0-117.0 [facility] ([place]) Comment on above: Performed By: #### C MP, TSH, MG, GFR, A1C #### [address] [address] U Microalb 1491 mcg/dL Normal [facility] ([place]) Comment on above: Performed By: #### C MP, TSH, MG, GFR, A1C #### [address] [address] U Ratio Alb/Cre 16 mcg/mg Normal 0-30 [facility] ([place]) Comment on above: Performed By: #### C MP, TSH, MG, GFR, A1C #### [address] [address] MGOrdered By: SYSTEM SYSTEM on 09-01-2022 Magnesium [Mass/Vol] 1.5 mg/dL Low 1.8-2.4 AO ADM SS Comment on above: Performed By: #### V IDH, CMP, MG, TSH, LIP, GFR, A1C #### [place] [address] #### PTH #### [place] [address] PTHon 09-01-2022 PTH, Intact 13.5 pg/mL Low 18.5-88.0 [facility] ([place]) Comment on above: Performed By: #### C MP, TSH, MG, GFR, A1C #### [address] [address] TSHOrdered By: SYSTEM SYSTEM on 09-01-2022 TSH Qn 1.06 m[IU]/L Normal 0.36-3.74 AO ADM SS Comment on above: Performed By: #### V IDH, CMP, MG, TSH, LIP, GFR, A1C #### [place] [address] #### PTH #### [place] [address] VIDHOrdered By: SYSTEM SYSTE M on 09-01-2022 Vit. D 25-Hydroxy 43.1 ng/mL Normal AO ADM SS Comment on above: Result Comment: Inte rpretive Values Based on Total 25(OH) Vitamin D: Deficient <20 ng/mL Insufficient 20 - <30 ng/mL Sufficient 30-100 ng/mL Performed By: #### V IDH, CMP, MG, TSH, LIP, GFR, A1C #### [place] [address] #### PTH #### [address] [address] BMPon 04-20-2018 Anion gap 3 molar conc 7 mmol/L Normal - [facility] Comment on above: Performed By: #### L 500.09431, L500.92737 ####[facility] [id number] [place], [place] [address]Df# [phone] Calcium mass conc 9.3 mg/dL Normal 8.5-10.1 [facility] Comment on above: Performed By: #### L 500.79212, L500.48714 ####[facility] [id number] [place], [place] [address]Iz# [phone] Chloride molar conc 101 mmol/L Normal 98-107 [facility] Comment on above: Performed By: #### L 500.04951, L500.03243 ####[facility] [id number] [place], [place] [address]Vi# [phone] CO2 molar conc 32 mmol/L Normal 21-32 [facility] Comment on above: Performed By: #### L 500.29496, L500.92738 ####[facility] [id number] [place], [place] [address]Yc# [phone] Creatinine mass conc 0.920 mg/dL Normal 0.510-0.95 0 [facility] Comment on above: Result Comment: Lucy ents receiving either N-Acetylcysteine (NAC) orMetamizole prior to venipuncture, may have falsely depressedresults. Performed By: #### L 500.25537, L500.62377 ####[facility] [id number] [place], [place] [address]Tt# [phone] Glucose mass conc 131 mg/dL High 70-100 [facility] Comment on above: Result Comment: 70-1 00- Normal Fasting; 100-125 Impaired Fasting; greaterthan 126 on more than one result- Diabetes. ADA guidelines.Results may be falsely elevated after the administration ofSulfapyridine.Results may be falsely depressed after the administration ofSulfasalazine. Performed By: #### L 500.29986, L500.46358 ####[facility] [id number] [place], [place] [address]Rh# [phone] Potassium molar conc 4.0 mmol/L Normal 3.5-5.1 [facility] Comment on above: Performed By: #### L 500.64040, L500.37886 ####[facility] [id number] [place], [place] [address]Vo# [phone] Sodium molar conc 140 mmol/L Normal 136-145 [facility] Comment on above: Performed By: #### L 500.14319, L500.65294 ####[facility] [id number] [place] [address]Yd# [phone] Urea nitrogen mass conc 16 mg/dL Normal 7-26 [facility] Comment on above: Performed By: #### L 500.14837, L500.60950 ####[facility] [id number] [place], [place] [address]Ph# [phone] Urea nitrogen/Creatinin e mass ratio 18 mg/mg Normal 15-24 [facility] Comment on above: Performed By: #### L 500.65485, L500.16601 ####[address] [address]Cp# [phone] EKGon 04-20-2018 Protein mass conc Procedure Date and T shu: 04/20/182Test Reason :Blood Pressure : / mmHGVent. Rate : 078 BPM Atrial Rate : 078 BPMP-R Int : 166 ms QRS Dur : 086 msQT Int : 392 ms P-R-T Axes : 014 -21 017 degreesQTc Int : 446 msNormal sinus rhythmPoor anterior R-wave progressionNormal ECGNo previous ECGs availableConfirmed by JESSICA HAIR A. ([id number]) on 04/21/2018 3:47:34 AMReferred By: Shun Diaz Confirmed By:Tico HAIR M.D.FACC VamsiDDandT: 04/20/182TDandT:[facility] PATIENT NAME: SAKSHI MAN [facility] Dr. Ambriz MEDICAL REC #: [id number], [place] [address] DATE:DISCHARGE DATE:ATTENDING PHY: Shun Diaz DOELECTROCARDIOGRAM REPORTCLBcc:[facility] PATIENT [facility]: [facility] MEDICAL REC #: [id number], [place] [address] DATE:DISCHARGE DATE:ATTENDING PHY: Shun Diaz DOELECTROCARDIOGRAM REPORT Normal [facility] [place] GFR ESTon 04-20-2018 IF AMER Greater than 60 Normal [facility] Comment on above: Performed By: #### L 500.20153, L500.14635 ####[facility] [id number] [place], [place] [address]Bj# [phone] IF non-AFR AMER Greater than 60 Normal [facility] Comment on above: Performed By: #### L 500.16000, L500.95091 ####[facility] [id number] [place], [place] [address]Yd# [phone] [facility] REPORT Normal [facility] DATE OF SERVICE: 03/19/2018SUBJECTIVE: This is a 62-year-old female here today complaining of left thumb, hand,wrist pain that has been going on for just about a week. No injury or trauma. Sheis right-hand dominant. She said she does a lot of repetitive work with her hands.No numbness or tingling.PAST HISTORY: She has had a history of diabetes and hypertension.CURRENT MEDICATIONS: She is on:1. Indapamide.2. Losartan.3. Trazodone.4. Janumet.5. Glimepiride.6. Magnesium.7. Aspirin.8. Calcium.9. Invokana.ALLERGIES: No known drug allergies.SOCIAL HISTORY: She is a nonsmoker. Denies alcohol use.FAMILY HISTORY: Significant for hypertension and cancer.OBJECTIVE: Vital Signs: Stable. She is afebrile. Extremities: She has someswelling at the base of left thumb, really near the 1st CMC joint. There istenderness specifically there. There is some mild snuffbox tenderness as well.Neurovascular is intact distally.DIAGNOSTIC DATA: X-rays reveal severe degenerative changes at the 1st CMC joint ofthe left wrist and thumb.IMPRESSION: Left wrist carpometacarpal joint arthritis.PLAN: She is put in a thumb spica soft splint; I applied that myself. She is towear that for comfort. She is to ice and take ibuprofen or Aleve for the pain andsee her doctor for a followup. _Mark Dottie [facility]/[id number]: 03/19/2018 17:27DT: 03/20/2018 21:37SSI File#: [id number] #: [id number] [facility] PATIENT NAME: SAKSHI MAN ARACELI Ambriz MEDICAL REC #: [id number], [place] [address] [facility] RE[facility] STATCARE PHYSICIANVerified/Reviewed by03/23/18 0820 MARGA [facility] PATIENT NAME: SAKSHI MAN [id number] Cecilia Ambriz MEDICAL REC #: [id number], [place] [address] [place] [address] REPORT STATCARE PHYSICIAN Normal [facility] WRIST MIN 3 VWS COMP LTon WRIST MIN 3 VWS COMP LT WRIST MIN 3 VWS COMP LTOrdering Physician: Gerardo Sinclair MD03/19/2018 4:56 PMLEFT WRIST FIVE VIEWSClinical Statement: Lateral wrist pain for one week.No comparisonFINDINGS: There is no fracture or dislocation identified. The carpalrows demonstrate normal alignment. There are moderate to severedegenerative changes at the first carpometacarpal joint.IMPRESSION:Moderate to severe degenerative change at the first carpometacarpaljoint.No acute osseous abnormality. ---- Electronic Signature on File ----Signed By: Shivam Palacios [email or web address]: 03/19/2018 5:23 PMSigned: 03/19/2018 6:43 PM Reported By: SHIVAM PALACIOS M.D. Signed By: SHIVAM PALACIOS M.D. Normal [facility] 10-26-2017 Anion gap 3 molar conc 8 mmol/L Normal 5-16 [facility] Comment on above: Order Comment: Campu s: M Performed By: #### L 500.38316, L500.55824 ####[facility] [id number] [place], [place] [address]Ol# [phone] Calcium mass conc 9.2 mg/dL Normal 8.5-10.1 [facility] Comment on above: Order Comment: Campu s: M Performed By: #### L 500.82519, L500.68686 ####[facility] [id number] [place], [place] [address]Hc# [phone] Chloride molar conc 103 mmol/L Normal 98-107 [facility] Comment on above: Order Comment: Campu s: M Performed By: #### L 500.20322, L500.40372 ####[facility] [id number] [place], [place] [address]Co# [phone] CO2 molar conc 30 mmol/L Normal 21-32 [facility] Comment on above: Order Comment: Campu s: M Performed By: #### L 500.43828, L500.52867 ####[facility] [id number] [place], [place] [address]Yw# [phone] Creatinine mass conc 0.622 mg/dL Normal 0.510-0.95 0 [facility] Comment on above: Order Comment: Campu s: M Result Comment: Lucy ents receiving either N-Acetylcysteine (NAC) orMetamizole prior to venipuncture, may have falsely depressedresults. Performed By: #### L 500.51174, L500.01857 ####[facility] [id number] [place], [place] [address]Ee# [phone] Glucose mass conc 157 mg/dL High 70-100 [facility] Comment on above: Order Comment: Campu s: M Result Comment: 70-1 00- Normal Fasting; 100-125 Impaired Fasting; greaterthan 126 on more than one result- Diabetes. ADA guidelines.Results may be falsely elevated after the administration ofSulfapyridine.Results may be falsely depressed after the administration ofSulfasalazine. Performed By: #### L 500.44447, L500.21307 ####[facility] [id number] [place], [place] [address]Wh# [phone] Potassium molar conc 3.7 mmol/L Normal 3.5-5.1 [facility] Comment on above: Order Comment: Campu s: M Performed By: #### L 500.92031, L500.35054 ####[facility] [id number] [place], [place] [address]Zi# [phone] Sodium molar conc 141 mmol/L Normal 136-145 [facility] Comment on above: Order Comment: Campu s: M Performed By: #### L 500.54094, L500.98183 ####[facility] OKKXGQCKSH4415 [place], [place] [address]Ig# [phone] Urea nitrogen mass conc 16 mg/dL Normal 7-26 [facility] Comment on above: Order Comment: Campu s: M Performed By: #### L 500.20517, L500.77024 ####[facility] [id number] [place] [address]Cq# [phone] Urea nitrogen/Creatinin e mass ratio 26 mg/mg High - [facility] [place] Comment on above: Order Comment: Campu s: M Performed By: #### L 500.37335, L500.66634 ####[place] [address]Ph# [phone] CBC W/DIFFon 10-26-2017 BASO ABS 0.10 K/CU MM Normal 0-0.2 [facility] [place] Comment on above: Order Comment: Campu s: M Performed By: #### L 200.17930 ####[place] [address]Ph# [phone] Basophils/100 WBC Auto (Bld) 0.9 % Normal 0-2 [facility] [place] Comment on above: Order Comment: Campu s: M Performed By: #### L 200.27562 ####[address] [address]Jl# [phone] EOS ABS 0.20 K/CU MM Normal 0-0.5 [facility] [place] Comment on above: Order Comment: Campu s: M Performed By: #### L 200.77136 ####[place] [address]Ph# [phone] Eosinophils/100 WBC Auto (Bld) 3.0 % Normal 0-5 [facility] [place] Comment on above: Order Comment: Campu s: M Performed By: #### L 200.48195 ####[facility] [id number] [place] [address]Pj# [phone] Erythrocyte distribution width Auto Ratio (RBC) 13.9 % Normal 11-14.5 [facility] [place] Comment on above: Order Comment: Campu s: M Performed By: #### L 200.27625 ####[facility] BNUTICITCX[address] [place], [place] [address]Ph# [phone] Hematocrit Auto Volume Fraction (Bld) 40.8 % Normal 35.0-47.0 [facility] Comment on above: Order Comment: Campu s: M Performed By: #### L 200.13041 ####[facility] [id number] [place] [address]Ng# [phone] Hemoglobin mass conc (Bld) 13.2 g/dL Normal 11.5-15.5 [facility] Comment on above: Order Comment: Campu s: M Performed By: #### L 200.55364 ####[address]# [phone] IMMATR GRAN ABS 0.00 K/CU MM Normal Less than 2 [facility] [place] Comment on above: Order Comment: Campu s: M Performed By: #### L 200.44875 ####[place] [address]Ph# [phone] IMMATURE GRAN % 0.2 % Normal Less than 2 [facility] [place] Comment on above: Order Comment: Campu s: M Performed By: #### L 200.39136 ####[facility] [id number] [place], [place] [address]Ph# [phone] Lymphocytes Auto #/vol (Bld) 2.10 K/CU MM Normal 0.9-4.4 [facility] Comment on above: Order Comment: Campu s: M Performed By: #### L 200.10918 ####[facility] LOXBAJRBBD[address] [place], [place] [address]Ph# [phone] Lymphocytes/100 WBC Auto (Bld) 37.0 % Normal 20-40 [facility] Comment on above: Order Comment: Campu s: M Performed By: #### L 200.97795 ####[facility] [address]UALMMPVNO[address] [place], [place] [address]Ph# [phone] MCHC Auto mass conc (RBC) 32.4 g/dL Normal 32.0-36.0 [facility] Comment on above: Order Comment: Campu s: M Performed By: #### L 200.37440 ####[facility] ERHCANGKII6432 [place] [address]Ph# [phone] MCV Auto Entitic volume (RBC) 85.5 fL Normal 80.0-99.0 [facility] Comment on above: Order Comment: Campu s: M Performed By: #### L 200.22663 ####[facility] VUDMKFYJOS[address] [place], [place] [address]Ph# [phone] MONO ABS 0.40 K/CU MM Normal 0.1-1.1 [facility] Comment on above: Order Comment: Campu s: M Performed By: #### L 200.45750 ####[place] [address]Ph# [phone] Monocytes/100 WBC Auto (Bld) 7.2 % Normal 2-10 [facility] Comment on above: Order Comment: Campu s: M Performed By: #### L 200.83800 ####[facility] [id number] [place], [place] [address]Ph# [phone] NEUTROPHIL ABS 3.00 K/CU MM Normal 2.0-8.3 [facility] Comment on above: Order Comment: Campu s: M Performed By: #### L 200.55320 ####[facility] [address]LR[address]UYJU[address] [place], [place] [address]Ph# [phone] Neutrophils/100 WBC Auto (Bld) 51.7 % Normal 45-75 [facility] Comment on above: Order Comment: Campu s: M Performed By: #### L 200.31582 ####[facility] [id number] [place] [address]Gg# [phone] Nucleated RBC/100 WBC Ratio (Bld) 0.4 % Normal Less than 1 [facility] Comment on above: Order Comment: Campu s: M Performed By: #### L 200.23065 ####[facility] BQGPIGZCRL5201 [place], [place] [address]Ii# [phone] Platelet mean volume Auto Entitic volume (Bld) 10.0 fL Normal 9.4-12.4 [facility] [place] Comment on above: Order Comment: Campu s: M Performed By: #### L 200.79283 ####[facility] GWIYKYBBUA9053 [place], [place] [address]Je# [phone] Platelets Auto #/vol (Bld) 295 K/CU MM Normal 150-450 [facility] [place] Comment on above: Order Comment: Campu s: M Performed By: #### L 200.33961 ####[facility] SKNJAUTFHD8894 [place], [place] [address]Yk# [phone] RBC Auto #/vol (Bld) 4.77 M/CU MM Normal 3.90-5.30 [facility] [place] Comment on above: Order Comment: Campu s: M Performed By: #### L 200.69940 ####[facility] RTTZHZEWBC6506 [place], [place] [address]Cn# [phone] WBC Auto #/vol (Bld) 5.7 K/CU MM Normal 4.5-11.0 [facility] [place] Comment on above: Order Comment: Campu s: M Performed By: #### L 200.07993 ####[facility] LPSJVKLBPT9329 [place], [place] [address]Ll# [phone] ABD/PEL W IV CONTRAST ONL Yon 10-26-2017 CT ABD/PEL W IV CONTRAST ONLY CT ABD/PEL W IV CONTRAST ONLYOrdering Physician: Patrick Polo10/26/2017 4:23 PMCT ABDOMEN AND PELVIS IV CONTRAST ONLYClinical Statement: Pelvic pain vaginal bleeding history ofreconstructive surgery status post hysterectomyComparison: NoneFINDINGS: CT of the abdomen and pelvis was performed followingintravenous administration of 100 cc of Isovue-300. Lack of oralcontrast limits assessment of the bowel.There are sclerotic changes involving the pubic symphysis likelydegenerative. Degenerative changes are shown involving the spine. Theincluded lung bases show basilar atelectasis.There is no free air. There is no free fluid.The uterus is surgically absent. There are nonenlarged ovaries withfoci of calcification. There is some thickening of the round ligamentsbilaterally. Significance of this is uncertain. This may be the thesequela of previous surgery. However if surgery was performed formalignancy then further evaluation with nonemergent MRI would besuggested.There is a cystocele seen involving the otherwise normal bladder.Sutures are seen involving the mid sigmoid colon there are scattereddiverticula. No obvious CT evidence of diverticulitis is seen. Thereis some higher density material within the right colon likely ingestedmaterial. Appendix is not dilated.There is mild fatty metamorphosis of the nonenlarged liver.Gallbladder is collapsed. No hepatic mass or biliary ductal dilatationis shown. There is cholelithiasis within the dependentgallbladder/gallbladde r neck.Pancreas and adrenals are not enlarged. There is no hydronephrosis orurinary tract calculi. There is a tiny hypodensity involving the leftkidney too small to characterize.The aorta is normal course and caliber. There is no adenopathy.Postoperative changes seen involving the abdominal wall. There is nohernia. There is soft tissue thickening posterior to the rectum andanus. This may be postoperative. However this will require correlationwith prior CT studies there are none at this institution.IMPRESSION:No acute findings are seen within the abdomen and pelvis. There arepresumed postoperative changes. There is thickening of the roundligaments bilaterally which may be the sequela previous surgery.Soft tissue thickening posterior to the rectum and anus. This may bepostoperative. However this will require correlation with priorstudies of which there are none at this institution.Cholelithiasis.Dive rticulosis.Fatty metamorphosis of the liver. ---- Electronic Signature on File ----Signed By: Dorothy Mcleod [email or web address]: 10/26/2017 5:37 PMSigned: 10/26/2017 5:46 PM Reported By: DOROTHY MCLEOD M.D. Signed By: DOROTHY MCLEOD M.D. [facility] DOSETRACK Normal [facility] DOSETRA Test Dose report.Kamaljit e: [place]PA HAAS JOAccession Number: [id number] Type: CTExam: ABPIV-CMax CTDIVol: 8.34 mGyDLP: 459.54 mGy*ivJL2XQ ABD/PEL W IV CONTRAST [id number] 0000.64202834547516.81597150669 44.90787256423710890.1 Abdomen CcqnewNncdcgg796.4416863.087566 0208.82167984993824.52909012418 1.59398305256065172.1 Abdomen DexikdOgkavti675.3467026.395496 99151.76694267576500.1265114902 1292.6345108046C2-993744.1 Abdomen PelvisAbdomen8.6027879525960.93 0387797749.75117.0675262.398511 0.9260451109499.26 [facility] PATIENT NAME: SAKSHI MAN[address] [facility] [address] [place] MEDICAL REC #: [id number], [place] [address] DATE:DISCHARGE DATE:DOSETRA ATTENDING PHY: Patricia Parker,Emergency Woacptxk53557.5688031480249.000 [id number] Abdomen PelvisAbdomen4.500387505720.610 006136438.54221.785710.0631013. 8341855392705.97 [facility] PATIENT NAME: SAKSHI MAN [id number] [facility] [address] [place] MEDICAL REC #: [id number], [place] [address] DATE:DISCHARGE DATE:TYLER ATTENDING PHY: Patricia Parker,Emergency Physicia Normal [facility] [place] ED DOCon 10-26-2017 ED DOC PHYSICIAN ASSESSMENT R ECORDS: FlexChartDataEvent Time: 10/26/2017 18:00Status: [facility] [[id number]][facility]62 / F / 5Chart created at 10/26/2017 17:51 by Patrick Cintron closed at 10/26/2017 18:07Entry in Emergency Department at 10/26/2017 14:52,departure at 10/26/2017 18:50Patient Name: Sakshi Man Record Number: [id number]: 10/26/2017 17:51 EnteredDepartment at: 10/26/2017 14:52 Patient Seen at:10/26/2017 18:00 Historian: PatientPCP: Ever Hudson Complaint:VAGINAL BLEEDING X3 DAYS.Temperature: 97.5 F (36.4 C). Pulse: 89. Respiratory Rate:16. Blood-pressure:101/70. Oxygen Saturation: 96%.History of Present Illness:I agree with nurses notes. Patient has been having somescant red bleeding. She has had a totalhysterectomy, possibly retained one ovary. She ended uphaving a bladder prolapse requiringreconstruction. Shes had vaginal bleeding in the pastafter having had a total hysterectomy. Thereconstruction was in July. It was done up in [place].Her local FIELD MARKETING SPECIALIST is Dr. Rene. No dysuria, nonausea, no vomiting, no other complaintsHPI Elements: Onset:(3 days); Timing: Intermittent; [facility] PATIENT NAME: SAKSHI MAN [facility] [address] [place] MEDICAL REC #: [id number], [place] [address] DEPARTMENT CHART EMERGENCY DEPARTMENT PHYSICIANLocation: vaginal; Quality: Pressure (suprapubicpressure, low back pressure); Severity: maximum Mild, nowMild; Context: At Rest; Exacerbated by:Nothing; Alleviated by: Nothing Associated symptoms: none.Review of Systems. Constitutional: negative for Fever Eyes:negative for Eye Pain Ear/Nose/Throat:negative for Sore Throat Cardio-Vascular: negative forChest Pain Respiratory: negative for Dyspnea GI:positive for Abd. Pain, negative for Diarrhea, Nausea orVomiting, pressure : negative for DysuriaMusculo-Skeletal: negative for Back Pain Neurological:negative for Headache Hem/Endo: negative forBleeding Immunology: negative for Joint Pain All othersystems reviewed and negative..Past History, Medications, Allergies, Social History andFamily History reviewed in nurses note.Medications: Reviewed RN Note.JANUMET,ATORVASTATIN,INVOK AYAAN,GLIPIRIDE,BABY ASA,PREMARIN CREAM,TRAZADONE,DIOVANAllergies : Reviewed RN NoteNo Known AllergiesSocial History: Reviewed RN Note.Family History: Reviewed RN NotePhysical Examination: General: Alert and Well DevelopedHEENT: Normal ENT inspection.Eyes: Lids Normal; . Oropharynx / Throat: NormalPharynx. Neck: No Lymphadenopathy, NoMeningismus and Supple Respiratory: No Resp Distress andNormal Breath Sounds Cardio-Vascular: No murmur,No rub and RRR Abdomen: Soft; mild tenderness suprapubicBack: No Midline Tenderness and Non-tender; mild [facility] PATIENT NAME: SAKSHI MAN [address] MEDICAL REC #: [id number], [place] [address] DEPARTMENT CHART EMERGENCY DEPARTMENT PHYSICIANdiffuse low back/flank tenderness Extremity: No edemaNeurological: Alert, Oriented X3 and No GrossWeakness Skin: No rash, No Petechiae, Warm and DryPsychological: Mood/Affect Normal and NormalMemory/JudgmentBMP, information as of 10/26/2017, 4:25 pm141 --------+--------+--------andlt ; 157* Anion Gap = 83.7 BUN/CREA: 26; CALCIUM TOTAL: 9.2 Mg/DlCBC W/DIFF, information as of 10/26/2017, 4:24 pm85.5/ 13.2 /5.7 andgt;------andlt; 295/ 40.8 /N:51.7BASO ABS: 0.10 K/Cu Mm; BASOPHIL %: 0.9 %; EOS ABS: 0.20K/Cu Mm; EOSINOPHIL %: 3.0 %; IMMATR GRAN ABS:0.00 K/Cu Mm; IMMATURE GRAN %: 0.2 %; LYMPH %: 37.0 %;LYMPH ABS: 2.10 K/Cu Mm; MCHC: 32.4 Gm/Dl; MONOABS: 0.40 K/Cu Mm; MONOCYTE %: 7.2 %; MPV: 10.0; NEUTROPHILABS: 3.00 K/Cu Mm; NRBC: 0.4 %; RBC: 4.77M/Cu Mm; RDW: 13.9UA COMPLETE, information as of 10/26/2017, 4:25 pm+ +-------- + +- + ----+ +Urobil NORMAL + + --------+ +--- + --+ +Prot NEGATIVE + + --------+ +--- + --+ ++-------- + + +- [facility] PATIENT NAME: SAKSHI MAN[address] MEDICAL REC #: [id number], [place] [address] DEPARTMENT CHART EMERGENCY DEPARTMENT PHYSICIAN +----- + -++ +-------- + +- + ----+ +UA COMMENT: *Imaging Study Obtained:CT ABD/PEL W IV CONTRAST ONLYImaging Study Obtained:CT ABD/PEL W IV CONTRAST ONLY, Status:Signed ReportAvailableCT ABD/PEL W IV CONTRAST ONLYOrdering Physician: Patrick Polo10/26/2017 4:23 PMCT ABDOMEN AND PELVIS IV CONTRAST ONLYClinical Statement: Pelvic pain vaginal bleeding history ofreconstructive surgery status post hysterectomyComparison: NoneFINDINGS: CT of the abdomen and pelvis was performedfollowingintravenous administration of 100 cc of Isovue-300. Lack oforalcontrast limits assessment of the bowel.There are sclerotic changes involving the pubic symphysislikelydegenerative. Degenerative changes are shown involving thespine. Theincluded lung bases show basilar atelectasis.There is no free air. There is no free fluid.The uterus is surgically absent. There are nonenlarged [facility] PATIENT NAME: [facility]AKSHI [address] [facility] [address] MEDICAL REC #: [id number], [place] [address] DEPARTMENT CHART EMERGENCY DEPARTMENT PHYSICIANovaries withfoci of calcification. There is some thickening of theround ligamentsbilaterally. Significance of this is uncertain. This may bethe thesequela of previous surgery. However if surgery wasperformed formalignancy then further evaluation with nonemergent MRIwould besuggested.There is a cystocele seen involving the otherwise normalbladder.Sutures are seen involving the mid sigmoid colon there arescattereddiverticula. No obvious CT evidence of diverticulitis isseen. Thereis some higher density material within the right colonlikely ingestedmaterial. Appendix is not dilated.There is mild fatty metamorphosis of the nonenlarged liver.Gallbladder is collapsed. No hepatic mass or biliary ductaldilatationis shown. There is cholelithiasis within the dependentgallbladder/gallbladde r neck.Pancreas and adrenals are not enlarged. There is nohydronephrosis orurinary tract calculi. There is a tiny hypodensityinvolving the leftkidney too small to characterize. [facility] PATIENT NAME: SAKSHI MAN [facility] [address] MEDICAL REC #: [id number], [place] [address] DEPARTMENT CHART EMERGENCY DEPARTMENT PHYSICIANThe aorta is normal course and caliber. There is noadenopathy.Postoperative changes seen involving the abdominal wall.There is nohernia. There is soft tissue thickening posterior to therectum andanus. This may be postoperative. However this will requirecorrelationwith prior CT studies there are none at this institution.IMPRESSION:No acute findings are seen within the abdomen and pelvis.There arepresumed postoperative changes. There is thickening of theroundligaments bilaterally which may be the sequela previoussurgery.Soft tissue thickening posterior to the rectum and anus.This may bepostoperative. However this will require correlation withpriorstudies of which there are none at this institution.Cholelithiasis.Dive rticulosis.Fatty metamorphosis of the liver. ---- Electronic Signature on File ----Signed By: Dorothy Mcleod MD [facility] PATIENT NAME: SAKSHI MAN[address] [facility] [address] MEDICAL REC #: [id number], [place] [address] DEPARTMENT CHART EMERGENCY DEPARTMENT [email or web address]: 10/26/2017 5:37 PMSigned: 10/26/2017 5:46 PMReported By: DOROTHY MCLEOD M.D.Radiology: Interpreted by Radiologist.Medical Decision MakingPatient came in for evaluation of vaginal bleeding. This isbeen going on now for the past several days.She is also had some lower pressure discomfort to herabdomen, low back. Her workup here has beenunremarkable. She does have 1000 glucose in her urine, sheis on oral agents. She does check herfingerstick blood sugars regularly. CT scan did notidentify any acute emergent process, however, thereappeared to be extensive postsurgical changes.Unfortunately they did not have any CT scans to comparewith. Findings were discussed with the patient. She isdischarged to follow-up with her FIELD MARKETING SPECIALIST up Dr. Christiano Mustafa. We will be burning a copy of her discto take with her. She is comfortable withthat as is her significant other at bedside.Additional Information: Discussed Results, Diagnosis andFollow-Up with Patient.Clinical Impression:1. vaginal bleedingDisposition: Discharged *Home. Condition: Good at18:07Direct patient care supervision and electronicdocumentation review by Keanu Leyva on 10/29/2017 14:00.: FlexChartDataEvent Time: 10/29/2017 14:30Status: Signed [facility] PATIENT NAME: SAKSHI AMN[address] [facility] [address] MEDICAL REC #: [id number], [place] [address] DEPARTMENT CHART EMERGENCY DEPARTMENT [facility] CenterSakshi Man [[id number]]Attend ing Crucqmgdf03 / / 1955Addendum (V2b)Chart created at 10/29/2017 13:56 by Keanu LeyvaChart closed at 10/29/2017 13:56Entry in Emergency Department at 10/26/2017 14:52,departure at 10/26/2017 18:50Patient Name: Sakshi Man Record Number: [id number]: 10/29/2017 13:56 EnteredDepartment at: 10/26/2017 14:52 Patient Seen at:10/26/2017 18:00 PCP: Ever Hudson Complaint:VAGINAL BLEEDING X3 DAYS.Disposition: Discharged *Home. Condition: StableMSE completed.I was the primary ED attending..I confirm that I have reviewed the mid-level providersdocumentation and agree with the evaluation, planof care and disposition.. at13:56 : Discharge ReportEvent Time: 10/26/2017 18:08===DISCHARGE REPORT===: FlexChartDataEvent Time: 10/26/2017 18:00: FlexChartDataEvent Time: 10/29/2017 14:30: Discharge ReportEvent Time: 10/26/2017 18:08Status: DraftReasons to Return to the ER: [facility] PATIENT NAME: SAKSHI MAN [facility] [address] MEDICAL REC #: [id number], [place] [address] DEPARTMENT CHART EMERGENCY DEPARTMENT PHYSICIANYou must return to the ER for any new, worsening orchanging symptoms, or if you feel more ill or sick inany way. This is the most important thing to remember.Follow-up:The care you received in the ER was given on an emergencybasis only, and it is often not possible tocompletely treat or diagnose a problem in a single ERvisit. You must see your follow-up doctor for arecheck within a week unless you receive instructions witha different timeframe for follow-up. Pleasefollow all your discharge instructions.Medications:Unless the ER doctor tells you differently, you should takeall your regular medications and any newmedications prescribed today. Because it is not possiblefor the ER doctor to review all of yourmedication side effects or interactions, you must reviewpossible side effects and interactions with yourpharmacist when you get your prescriptions filled.EKG and Radiology Results:A tunnel form placing supervisor or radiologist will review any EKG orradiology results provided by the ER doctor. We willcontact you if the results in the final EKG or radiologyreports require a change in treatment.Culture Results:Cultures may have been ordered during your ER visit. Wewill contact you if the culture results require achange in treatment.Referrals:Most referrals to specialists come from the on-call listYou should make your regular doctor aware of anyreferrals before you schedule the appointment so that theyare aware and can make suggestionsDIAGNOSIS: [facility] PATIENT NAME: SAKSHI MAN [address] MEDICAL REC #: [id number], [place] [address] DEPARTMENT CHART EMERGENCY DEPARTMENT PHYSICIANvaginal bleedingINSTRUCTIONS:keep pad count, return if worsening pain, vomiting, feveror severe bleedingREFERRALYour regular doctor(s)Please call the above number to schedule a follow-upappointment.MEDICATION SWe have given you these prescriptions that you must filland start taking:NoneCOMMENTS:Patient Satisfaction:Within the first few days after your visit, you willreceive an email and/or phone call regarding yourvisit. We value your feedback, and would appreciate it ifyou would take the time to complete this shortsurvey. If you receive a call, it will be between 6p and 8p.My signature below indicates that I have received andunderstand the oral instructions regarding mymedical problem. I also acknowledge receipt of this writteninstruction sheet including a list of majortests and procedures ordered during my visit. I willarrange for follow-up care as indicated by theseinstructions and referrals.This signed original will be kept in my medical record.Your signature below indicates consent for Case Managementto contact [facility] in [facility] to meet your ongoing healthcare needs. This willallow forcontinuity of care once you leave theEmergency Department. This exchange of informationwill [facility] NAME: SAKSHI MAN Cecilia Ambriz MEDICAL REC #: [id number], [place] [address] DEPARTMENT CHART EMERGENCY DEPARTMENT PHYSICIANinclude, but not be limited to, disclosure of yourpatient information and possible release ofrecords. D EMOGRAPHICS Emergisoft Patient: SAKSHI SANTILLANex: FDOB: 5Age: 62 yrAccount No: [id number]: [id number] Date: 14:52 10/26/2017Address: [address] SE[place]: [place] [address] EQJOAX RATION ED Number: [id number]: Marital Status: MFinancial Class: PPO TRIAGE== Priority: 3 - UrgentComplaint: Vaginal BleedingStated Complaint: VAGINAL BLEEDING X3 DAYS.Arrival Date: 10/26/2017 14:52Triage Date: 10/26/2017 15:23Mode of Arrival: *Privately Owned VehicleTransfer From: * [facility]: NLanguage: EnglishTransport: Ambulatory/Walk In BED====== C27 In: 10/26/2017 15:36:35 10/26/201715:36:35 VDPC27 (Removed From) Out: 10/26/2017 18:50:15010/26/2017 18:50:15 [facility] PATIENT NAME: SAKSHI MAN [id number] Cecilia Ambriz MEDICAL REC #: [id number], [place] [address] DEPARTMENT CHART EMERGENCY DEPARTMENT PHYSICIAN LA OVIDERS RN FRITZ CURIEL Provider Contact: 10/26/201715:42:14 SASCEnd:RIO Polo Provider Contact: 10/26/201715:43:04 LFDEnd:MD Keanu Leyva Provider Contact: 10/26/2017 18:00:29LRSEnd: ====TRIAGE HISTORY YAKOV RGIESAllergic To: No Known Allergies 10/26/2017 15:26 JNHCURRENT MEDSName: JANUMET 10/26/2017 15:59 SASCName: ATORVASTATIN 10/26/2017 15:59 SASCName: INVOKANA 10/26/2017 15:59 SASCName: GLIPIRIDE 10/26/2017 15:59 SASCName: BABY ASA 10/26/2017 15:59 SASCName: PREMARIN CREAM 10/26/2017 15:59 SASCName: TRAZADONE 10/26/2017 15:59 SASCName: DIOVAN 10/26/2017 15:59 SASCILLNESSIllness: Hypertension 10/26/2017 15:26 JNHIllness: Diabetes: NIDDM 10/26/2017 15:26 JNHPAST SURGERY HIST [facility] PATIENT NAME: SAKSHI MAN0 Cecilia Ambriz MEDICAL REC #: [id number], [place] [address] DEPARTMENT CHART EMERGENCY DEPARTMENT PHYSICIANSurgery: RECTAL/BLADDER 10/26/2017 15:26 JNHSurgery: Hysterectomy-10/26/2017 15:26 JNHSurgery: COLON 10/26/2017 15:26 JNHPAST SOCIAL HISTSocial History: Communicates without tcnsitooag34/24/2018 15:26 JNHSocial History: Lives with family or significant other10/26/2017 15:26 JNHSocial History: Alcohol - None 10/26/2017 15:26 JNHSocial History: Smoker-None 10/26/2017 15:26 JNHSocial History: Denies Domestic Violence 10/26/201715:26 JNHSocial History: Denies thoughts of self harm.10/26/2017 15:26 JNHSocial History: Have you traveled in the past month?Where NO 10/26/2017 15:26 JNH NURSING ASSESSMENT ASSESSMENT NOTES 2017 15:55 Pt states that she had a bladder slingand her rectum fixed Jul 2017.Pt reports a [id number].Pt reports vaginal bleeding that is les than 1 paddaily.Pt states that tday it is a smear of pink when shewipes but yesterday she had a few bright red clots.Pt alsoreport pelvic pain and low back pain in the middle.Ptdenies dizziness,sob or n,v.Respers are easy unlabored.Ptis alert and oriented x4. 10/26/2017 15:58 SASC TREATME NT [facility] PATIENT NAME: SAKSHI MAN[address] Ambriz MEDICAL REC #: [id number], [place] [address] DEPARTMENT CHART EMERGENCY DEPARTMENT PHYSICIAN 15:59 Primary DOC Guide - A. Patient Qhaaxng1310/26/2017 16:00 SASCPrimary History Source PatientAvian Exposure - Been exposed to or in contact with anybird or chicken in the last 30 days YesAvian Exposure - Work on a bird or chicken farm orprocessing plant YesAvian Exposure Note: 3 PARAKEETSTB Screening All NegativeLatex Allergy Screen All NegativeTravel History - Traveled outside of the state in thelast 30 days NoTravel History - Had contact with a person who hastraveled outside the state in the last 30 days No10/26/2017 16:00 Primary DOC Guide - B. Fall RiskAssessment (Age andlt;65) 10/26/2017 16:00 SASCHistory of Falling in last 3 months? No (0)Confusion or Disorientation? No (0)Intoxicated or Sedated? No (0)Impaired Gait? No (0)Mobility Assist Device Used? No (0)Altered Elimination? No (0)Fall Risk Score 1-2 Points = Low Risk. 3-4 Points =Moderate Risk. 5 or more points = High Risk. 0Fall Score Greater andgt;= 3? NoNote: 16:00 Primary DOC Guide - D. PsychosocialAssessment 10/26/2017 16:00 SASCOver the Last 2 weeks, how often have you had littleinterest or pleasure in doing things (0) Not at AllIs Psychosocial Assessment Score 3 or more? If score is3 or more please consult ED Navigator! NoTotal Psychosocial Assessment Score 0Note: 0Over the last 2 weeks, how often have you been feelingdown, depressed or hopeless (0) Not at All10/26/2017 16:00 Primary DOC Guide - E. Family ViolenceAssessment 10/26/2017 16:00 SASCIndicators of Neglect NoIndicators of Physical Abuse NoIndicators of Sexual Abuse NoWithin the past year, has anyone ever pushed, shoved, [facility] PATIENT NAME: SAKSHI MAN Cecilia Ambriz MEDICAL REC #: [id number], [place] [address] DEPARTMENT CHART EMERGENCY DEPARTMENT PHYSICIANslapped, choked, hit, punched or kicked you: NoWithin the past year, has anyone ever pressured orforced you to have sexual activities when you did not wantto: NoDo you feel safe and well cared for: NoIs there a partner from a previous or currentrelationship that is making you feel unsafe now: No10/26/2017 16:00 Hourly Rounding - Rounding 10/26/201716:01 SASCPosition Comfortable YSafe Environment 10/26/2017 17:02 Hourly Rounding - Rounding 10/26/201717:02 SASCPosition Comfortable YSafe Environment 10/26/2017 18:06 Hourly Rounding - Rounding 10/26/201718:06 SASCPosition Comfortable YSafe Environment Y10/26/2017 18:32 Admit/Discharge - Discharge infomationreviewed with pt 10/26/2017 18:33 [facility]10/26/2017 18:32 Admit/Discharge - Dischargeinstruction reviewed 10/26/2017 18:33 [facility]10/26/2017 18:33 Admit/Discharge - Discharge 10/26/201718:33 SASC MEDICAT IONS IV ====IV Fluid: B 10/26/2017 16:37 10/26/2017 16:37SASCLine #: 1 Fluid: Saline LockRate: ml/hr Location: arm rightNdl Gauge: 22 # Attempts: 1Notes: catheter flushes well [facility] PATIENT NAME: SAKSHI MAN [id number] Ambriz MEDICAL REC #: [id number], [place] [address] DEPARTMENT CHART EMERGENCY DEPARTMENT PHYSICIANIV Fluid: E 10/26/2017 18:11 10/26/2017 18:11SASCLine #: 1 Rate: ml/hr Location: arm rightNdl Gauge: 22 # Attempts: 1Notes: iv removed catheter intact I AND O VITALS =====VS-ROUTINE Time: 10/26/2017 15:23B/P: 101/70 - Right Upper Arm - Sitting - MachinePulse: 89 - Monitor Resp: 16Sa02: 96 Room Air Temp: 97.50 F -10/26/2017 15:26 JNHVS-Pain Time: 10/26/2017 15:23 Pain Level: 15:26 JNHVS-GCS Time: 10/26/2017 15:23 Visual: 4 Verbal: 5 Motor:6 GCS Total: 10/26/2017 15:26 JNHVS-HT/WT Time: 10/26/2017 15:23 Ht: 62 in. Weight:153 lbs 10/26/2017 15:26 JNHVS-Visual Time: 10/26/2017 15:23 10/26/2017 15:26 JNHVS-FHT Time: 10/26/2017 15:23 10/26/2017 15:26JNHVS-Notes Time: 10/26/2017 15:23 MAP 82 10/26/201715:26 JNHVS-ROUTINE Time: 10/26/2017 15:54B/P: 112/68 - *Left Forearm - Lying - Machine Pulse:87 - Monitor Resp: 18Sa02: 96 Room Air 10/26/2017 15:55 SASCVS-Pain Time: 10/26/2017 15:54 10/26/2017 15:55SASCVS-GCS Time: 10/26/2017 15:54 10/26/2017 15:55 SASCVS-HT/WT Time: 10/26/2017 15:54 10/26/2017 15:55 SASCVS-Visual Time: 10/26/2017 15:54 10/26/2017 15:55 SASCVS-FHT Time: 10/26/2017 15:54 10/26/2017 15:55SASCVS-Notes Time: 10/26/2017 15:54 m84 10/26/2017 15:55SASCVS-ROUTINE Time: 10/26/2017 18:09B/P: 115/64 - *Left Forearm - Lying - Machine Pulse:83 - Monitor Resp: 18 [facility] PATIENT NAME: SAKSHI MAN[address] Ambriz MEDICAL REC #: [id number], [place] [address] DEPARTMENT CHART EMERGENCY DEPARTMENT GBGLITLTTMb29: 95 Room Air 10/26/2017 18:10 SASCVS-Pain Time: 10/26/2017 18:09 10/26/2017 18:10SASCVS-GCS Time: 10/26/2017 18:09 10/26/2017 18:10 SASCVS-HT/WT Time: 10/26/2017 18:09 10/26/2017 18:10 SASCVS-Visual Time: 10/26/2017 18:09 10/26/2017 18:10 SASCVS-FHT Time: 10/26/2017 18:09 10/26/2017 18:10SASCVS-Notes Time: 10/26/2017 18:09 m84 10/26/2017 18:10SASC OR DERS Dischar ge patient 10/26/2017 18:12N/AOrdered: 10/26/2017 18:07 By . OtherReviewed: 10/26/2017 18:12 By . OtherEXTERN ORDER: GFRP 10/26/2017 16:51NoneOrdered: 10/26/2017 16:51 Completed Time:10/26/2017 16:51 Results Time: 10/26/2017 16:51BMP 10/26/2017 16:51N/AOrdered: 10/26/2017 16:23 By Patrick DykoCompleted Time: 10/26/2017 16:51 By Patrick DykoNoted Time: 10/26/2017 16:32 ONDResults Time: 10/26/2017 16:51CBC with diff 10/26/2017 16:36N/AOrdered: 10/26/2017 16:23 By Patrick DykoCompleted Time: 10/26/2017 16:36 By Patrick DykoNoted Time: 10/26/2017 16:32 ONDResults Time: 10/26/2017 16:36UA cath 10/26/2017 17:21N/AOrdered: 10/26/2017 16:23 By Patrick DykoCompleted Time: 10/26/2017 17:21 By Patrick DykoNoted Time: 10/26/2017 16:32 ONDQuestion: Lab Urine Specimen TypeAnswer: CatheterizedQuestion: Also Culture, if indicated by UA results (Y or N) [facility] PATIENT NAME: SAKSHI MANally Ambriz MEDICAL REC #: [id number], [place] [address] DEPARTMENT CHART EMERGENCY DEPARTMENT PHYSICIANAnswer: NOResults Time: 10/26/2017 17:21CT abd and pel with IV con only 10/26/2017 17:55N/AOrdered: 10/26/2017 16:23 By Patrick PoloCompleted Time: 10/26/2017 17:55 By Patrick PoloIndication: pelvic pain, vaginal bleeding, history ofreconstructive surgery status post hysterectomyNoted Time: 10/26/2017 17:43Question: Are you or think you might be ?Answer: NOQuestion: Patient has history of true RCM allergy?Answer: NOIV hep lock 10/26/2017 16:37N/AOrdered: 10/26/2017 16:23 By Patrick PoloCompleted Time: 10/26/2017 16:36 By Patrick Polo DISCHAR GE Diagnosis : vaginal bleeding 10/26/2017 18:08Disposition: Time: 10/26/2017 18:07By: Keanu Roa Time: 10/26/2017 18:50Type: DischargeCondition: Stable for admission/discharge/transferaft er emergency evaluation/treatment Category: *NOTAPPLICABLEConcurred: 10/26/2017 18:12 Referral:10/26/2017 18:08 PRESCR IPTIONS CHARGES======== =SIGNATURE Jennie Polo PA-C LFDVMADDIE RENEE RN VDP [facility] PATIENT NAME: SAKSHI MAN13[address] Cecilia Ambriz MEDICAL REC #: [id number], [place] [address] DEPARTMENT CHART EMERGENCY DEPARTMENT PHYSICIANMAKENNA TELLEZ [facility] PATIENT NAME: SAKSHI MAN Cecilia Ambriz MEDICAL REC #: [id number], [place] [address] DEPARTMENT CHART EMERGENCY DEPARTMENT PHYSICIAN Normal [facility] ED Documentation This is a preliminar y report only, as the practitioner review and authentication has not occurred. Normal [facility] GFR ESTon 10-26-2017 IF AMER Greater than 60 Normal [facility] Comment on above: Order Comment: Robby s: M Performed By: #### L 500.94403, L500.48409 ####[address] [place], [place] [address]Wl# [phone] IF non-AFR AMER Greater than 60 Normal [facility] Comment on above: Order Comment: Robby leyva: Kimberly Performed By: #### L 500.26712, L500.70169 ####[facility] [id number] [place], [place] [address]Lc# [phone] MSCon 10-26-2017 [facility] REPORT Normal [facility] MSC DATE OF SERVICE: 10/26/2017CHIEF COMPLAINT: Bleeding.HISTORY OF PRESENT ILLNESS: This 62-year-old presents today with complaints of lowerpelvic pain as well as vaginal bleeding. Initially she states that she was not sureif it was rectal bleeding or vaginal bleeding, but upon further questioning she ispretty sure it is vaginal bleeding. She states this started on Monday. It startedfirst as a little pink puddle in her underwear and then she developed clots andsubsequent pelvic, low back pain and abdominal pain which she describes as a 4/10nondescript type of pain.PAST MEDICAL HISTORY: Significant for diabetes as well as hypertension. She hadsome pretty significant abdominal surgical history. She had a colon resection done10+ years ago. She also had a hysterectomy 2 years ago and reconstructive surgerydone in July 2017. She states she had bleeding like this 2 years ago when shehad her hysterectomy done. She states that she believes that her cervix is stillthere though and 1 ovary.FAMILY HISTORY: Significant for hypertension, diabetes and cancer.SOCIAL HISTORY: Nondrinker, nonsmoker.MEDICATIONS: Include:1. Janumet.2. Invokana.3. Glimepiride.4. Aspirin.5. Indapamide.ALLERGIES: None.PHYSICAL EXAMINATION: General: A 62-year-old in no acute distress. Vital Signs:Blood pressure is 98/58, pulse 74, respirations 16, temperature is 97.8, pulseoximetry 93%. HEENT: Mucous membranes are pink and moist. Heart: Regular, S1, S2.Lungs: Clear. Abdomen: Soft with tenderness in the suprapubic, right and leftlower quadrant. Extremities: No edema. No ecchymosis.IMPRESSION:1. Abdominal, pelvic and low back pain with vaginal bleeding per patient history.2. History of hysterectomy with reconstructive surgery done in July 2017.PLAN: With these findings and her past surgical history with abdominal pain andvaginal bleeding, I do feel that it is in patient's best interest to have moreappropriate evaluation and workup through the emergency department. She verbalizesunderstanding. I forwarded a patient referral form to the emergency department formost appropriate evaluation and workup of this patient's presenting complaint here [facility] today. She is comfortable with this. She is going to drive herself tot ER. [facility] PATIENT NAME: SAKSHI MAN ARACELI Ambriz MEDICAL REC #: [id number], [place] [address] [facility] PHYSICIAN _DONELL FreireB/[id number]: 10/26/2017 14:25DT: 10/27/2017 10:06SSI File#: [id number] #: [id number]/Reviewed by10/31/17 0947 NARINDER [facility] PATIENT NAME: RAY MANIman Ambriz MEDICAL REC #: [id number], [place] [address] [facility] PHYSICIAN Normal [facility] UA COMPLETEon 10-26-2017 Color Nom (U) Yellow Normal [facility] Comment on above: Order Comment: Campu s: M Performed By: #### L 600.09906 ####[facility] [id number] [place], [place] [address]Uq# [phone] Glucose mass conc (U) 1000 mg/dL Normal NORMAL [facility] Comment on above: Order Comment: Campu s: M Performed By: #### L 600.68966 ####[facility] [id number] [place], [place] [address]Ny# [phone] UA APPEARANCE CLEAR Normal CLEAR [facility] Comment on above: Order Comment: Campu s: M Performed By: #### L 600.82609 ####[facility] [id number] [place] [address]Pp# [phone] UA BILIRUBIN Negative Normal NEGATIVE [facility] Comment on above: Order Comment: Campu s: M Performed By: #### L 600.05613 ####[facility] [id number] [place] [address]Yp# [phone] UA BLOOD Negative Normal NEGATIVE [facility] Comment on above: Order Comment: Campu s: M Performed By: #### L 600.64493 ####[facility] [id number] [place] [address]Pm# [phone] UA COMMENT * Normal N [facility] Comment on above: Order Comment: Campu s: M Result Comment: *SHANA ROSCOPIC NOT PERFORMED BASED ON CHEMICAL DETERMINATIONS. Performed By: #### L 600.44723 ####[facility] [id number] [place] [address]Uy# [phone] UA KETONE Negative Normal NEGATIVE [facility] Comment on above: Order Comment: Campu s: M Performed By: #### L 600.36530 ####[facility] [id number] [place] [address]Ij# [phone] UA LK ESTERASE Negative Normal NEGATIVE [facility] Comment on above: Order Comment: Campu s: M Performed By: #### L 600.87279 ####[facility] [id number] [place] [address]Lf# [phone] UA NITRITE Negative Normal NEGATIVE [facility] Comment on above: Order Comment: Campu s: M Performed By: #### L 600.79304 ####[facility] [id number] [place], [place] [address]Oy# [phone] UA PH 7.5 Normal 5-6 [facility] Comment on above: Order Comment: Campu s: M Performed By: #### L 600.30069 ####[facility] [id number] [place] [address]Qc# [phone] UA PROTEIN Negative Normal NEGATIVE [facility] Comment on above: Order Comment: Campu s: M Performed By: #### L 600.79472 ####[facility] [id number] [place], [place] [address]Nx# [phone] UA SPEC GRAV 1.045 Normal 1.005-1.03 0 [facility] Comment on above: Order Comment: Campu s: M Performed By: #### L 600.43686 ####[facility] [id number] [place] [address]Am# [phone] UA UROBILINOGEN NORMAL Normal NORMAL [facility] Comment on above: Order Comment: Campu s: M Performed By: #### L 600.61683 ####[facility] [id number] [place] [address]Wx# [phone] Glucose,Bedsideon 07-28-2017 Glucose mass conc 130 mg/dL High 70-100 [facility] Comment on above: Result Comment: Test performed by glucose meter. Results may be 10%-15% lowerthan serum/plasma values. (CLIA ID [id number]) Performed By: #### B GLU ####The performing lab is in the report. Basic Metabolic Panelon 07-07 Calcium 9.1 mg/dL Normal 8.4-10.2 [facility] Comment on above: Performed By: #### B MP3 ####The performing lab is in the report. Glucose mass conc 70 mg/dL Normal 70-100 [facility] Comment on above: Performed By: #### B MP3 ####The performing lab is in the report. Anion gap 9 mmol/L Normal [facility] Comment on above: Performed By: #### B MP3 ####The performing lab is in the report. CO2 27 mmol/L Normal 22-30 [facility] Comment on above: Performed By: #### B MP3 ####The performing lab is in the report. Creatinine 0.58 mg/dL Normal 0.52-1.25 [facility] Comment on above: Performed By: #### B MP3 ####The performing lab is in the report. eGFR (black) mL/min/{1.73_m2} Normal >60 [facility] Comment on above: Performed By: #### B MP3 ####The performing lab is in the report. eGFR (non-black) mL/min/{1.73_m2} Normal >60 [facility] Comment on above: Result Comment: Sour ce- MDRD equation with creatinine calibration to IDMS(NKDEP)eGFR not recommended for drug dose adjustment Performed By: #### B MP3 ####The performing lab is in the report. Urea nitrogen 14 mg/dL Normal 7-20 [facility] Comment on above: Performed By: #### B MP3 ####The performing lab is in the report. Chloride 100 mmol/L Normal 98-107 [facility] Comment on above: Performed By: #### B MP3 ####The performing lab is in the report. Potassium molar conc 4.2 mmol/L Normal 3.5-5.1 [facility] Comment on above: Performed By: #### B MP3 ####The performing lab is in the report. Sodium 136 mmol/L Low 137-145 [facility] Comment on above: Performed By: #### B MP3 ####The performing lab is in the report. Encounters Encounter Date Encounter Type Care Provider Facility Start: 02-23-2024 End: 02-23-[address] DINAH HUDSON MD Facility:[facility] Start: 02-23-2024 End: 02-23-[address] DINAH HUDSON MD [facility] Start: 07-28-2023 End: 07-29-2023 ambulatory NOREEN G WIETECHA DO Facility:B Start: 07-07-2023 End: 07-08-2023 ambulatory NOREEN G WIETECHA DO Facility:[facility] Start: 04-26-2023 End: 04-27-[address] DINAH HUDSON MD Facility:[facility] Start: 03-17-2023 End: 03-18-2023 ambulatory NOREEN G WIETECHA DO Facility:[facility] Start: 03-17-2023 End: 03-17-2023 Patient encounter procedure NOREEN G WIETECHA DO [facility] Start: 01-06-2023 End: 01-07-[address] DINAH HUDSON MD Facility:[facility] Start: 01-06-2023 End: 01-06-[address] DINAH HUDSON MD [facility] Start: 12-12-2022 End: 12-13-2022 ambulatory NOREEN G WIETECHA DO Facility:[facility] Start: 09-20-2022 End: 09-21-2022 ambulatory NOREEN G WIETECHA DO Facility:[facility] Start: 09-20-2022 End: 09-20-2022 Patient encounter procedure NOREEN G WIETECHA DO [facility] Start: 09-01-2022 End: 09-02-2022 ambulatory NOREEN G WIETECHA DO Facility:[facility] Start: 09-01-2022 End: 09-01-2022 Patient encounter procedure NOREEN G WIETECHA DO [facility] Start: 03-18-2022 End: 03-18-[address] DINAH HUDSON MD [facility] Start: 04-20-2018 Patient encounter procedure Shun Diaz Facility:[facility] Start: 03-19-2018 Patient encounter procedure Zeynep Pedroza Facility:[facility] Start: 10-26-2017 Emergency department patient visit Dinah Hsieh Hudson Facility:[facility] Start: 10-26-2017 Patient encounter procedure Maikel Tico Kumar Facility:[facility] Start: 07-27-[address] [facility] Start: 07-20-[address] [facility] Procedures Date Procedure Procedure Detail Performing Clinician Start: 04-20-2018 Ecg routine ecg w/le ast 12 lds i&r only Maikel Heath None (qualifier value) NOREEN MONCADA DO Payers Date Payer Category Payer Medicare [id number] 2017 Unknown [id number] 1955 Unknown [id number] 2.16.8 [id number] 1955 Unknown [id number] 2.16.8 [id number] 1955 Unknown [id number] 2.16.8 40.1.082872.3.579.2.627 1955 Unknown [id number] 2.16.8 40.1.008532.3.579.2.627 1955 Unknown [id number] 2.16.8 40.1.707559.3.579.2.627 1955 Unknown [id number] 2.16.8 40.1.777676.3.579.2.627 1955 Unknown [id number] 2.16.8 40.1.756746.3.579.2.627 1955 Unknown [id number] 2.16.8 40.1.721369.3.579.2.627 1955 Unknown [id number] 2.16.8 40.1.878570.3.579.2.627 Unknown Unknown [id number] 2.16.8 40.1.230151.3.579.2.273 Unknown [id number] 2.16.8 40.1.466962.3.579.2.273 Unknown [id number] 2.16.8 40.1.781460.3.579.2.273 Unknown [id number] 2.16.8 40.1.363474.3.579.2.273 Social History Date Type Detail Facility Tobacco smoking status Never smo ked tobacco (finding) [facility] Sex Assigned At Sex [facility] Evaluation + Plan note Note Date & Type Note Facility Evaluation + Plan note No data available for this section [facility] Hospital Discharge instructions Note Date & Type Note Facility Hospital Discharge instructions No data available for this section [facility] Progress note Note Date & Type Note Facility Progress note No data available for this section [facility] Summary Purpose Family History No Family History Records FoundNo Family History Records Found No data available for this section No data available for this section No Family History Records Found No data available for this section No Family History Records Found Advance Directives No Advanced Directives Records FoundNo Advanced Directives Records FoundNo Advanced Directives Records FoundNo Advanced Directives Records Found Additional Source Comments INFORMATION SOURCE (unrecogn ized section and content) DATE CREATED AUTHOR 11/24/2017 [facility] DATE CREATED AUTHOR AUTHOR'S ORGANIZ ATION 05/14/2018 [facility] DATE CREATED AUTHOR AUTHOR'S ORGANIZ ATION 08/05/2023 [facility] ([place]) DATE CREATED AUTHOR AUTHOR'S ORGANIZ ATION 03/01/2024 [facility] Care Team (unrecognized sect ion and content) Care Team Personnel Name: DINAH HUDSON MD Med Service: [facility] FP Member Role: Primary Care Physician Address: Address: [address] [place] [address] Care Team Related Persons Name: WHITLEY MAN Address: [address] [place] [address] Patient Care team informatio n (unrecognized section and content) Care Team Personnel Name: DINAH HUDSON MD Member Role: Primary Care Physician Address: Address: [address] [place], [place] [address] Care Team Related Persons Name: WHITLEY MAN Address: Home [address] [place] [address] [place] Care Team Personnel Name: DINAH HUDSON MD Member Role: Primary Care Physician Address: Address: [address] Care Team Related Persons Name: WHITLEY MAN Address: Home [address] [place] [address] Care Team Personnel Name: DINAH HUDSON MD Member Role: Primary Care Physician Address: Address: [address] Care Team Related Persons Name: WHITLEY MAN Address: Home [address] [place] [address] [place] Care Team Personnel Name: DINAH HUDSON MD Member Role: Primary Care Physician Address: Address: [address] Care Team Related Persons Name: WHITLEY MAN Address: Home [address] [place] [address] [place] Care Team Personnel Name: DINAH HUDSON MD Position: No Access Member Role: Primary Care Physician Address: Address: [address] Care Team Related Persons Name: WHITLEY MAN Address: Home [address] [place] [address] [place] FOR RECORDS PERTAINING TO PATIENTS WHO ARE OR HAVE BEEN ENROLLED IN A CHEMICAL DEPENDENCY/SUBSTANCEABUSE PROGRAM, SOME INFORMATION MAY BE OMITTED. This clinical summary was aggregated from multiple sources. Caution should be exercised in using it in the provision of clinical care. This summary normalizes information from multiple sources, and as a consequence, information in this document may materially change the coding, format and clinical context of patient data. In addition, data may be omitted in some cases. CLINICAL DECISIONS SHOULD BE BASED ON THE PRIMARY CLINICAL RECORDS. [facility]. provides no warranty or guarantee of the accuracy or completeness of information in this document.
== END | disposition home or self-care (01) ==
LOC: OPBD 08:55
PROVIDERS: PCP Family Medicine; Referring Provider Nurse Practitioner Family; Visit Provider Nurse Practitioner Family
DX: M81.0 Age-related osteoporosis without current pathological fracture (principal)
CPT/HCPCS: 77080

== ENCOUNTER → 2024-07-29 | Outpatient (CLI) | payer MEDICARE, OTHER, SELFPAY ==
[2024-07-29 09:33] LABS: Absolute Lymphocyte Count 1.71 X10^3/uL (0.83-4.51); Absolute Neutrophil Count 4.6 X10^3/uL (2.0-7.7); Basophil# 0.03 X10^3/uL; Basophil% 0.4 % (0-1); Eosinophil# 0.08 X10^3/uL; Eosinophils% 1.2 % (0-5); Hematocrit 42.9 % (37-47); Hemoglobin 14.1 g/dL (12.0-15.0); Lymphocyte # 1.71 X10^3/ul (0.83-4.51); Lymphocyte % 24.9 % (19-41); Mean Corp Hgb Conc 32.9 g/dL (32-36); Mean Corpuscular Hgb 29.7 pg (27.0-32.0); Mean Corpuscular Volume 90.3 fL (81-99); Mean Platelet Vol. 10.8 fl (6.2-12.0); Monocyte# 0.45 X10^3/uL; Monocyte% 6.5 % (0-10); NRBC Flagged by Analyzer 0 % (0-5); Neutrophil # 4.59 X10^3/uL (2.7-7.7); Neutrophil % 66.7 % (47-70); Platelet Count 205 K/mm3 (150-450); RBC Distribution Width CV 13.2 % (11.6-14.6); RBC Distribution Width SD 43.6 fl (35.1-43.9); Red Blood Count 4.75 M/mm3 (4.2-5.4); White Blood Count 6.9 K/mm3 (4.4-11.0)
[2024-07-29 09:47] LABS: Vitamin D,25 Hydroxy 47.3 ng/mL
[2024-07-29 10:30] LABS: Microalbumin,Random Urine 9.3 mg/L (NO RANGE EST.); Microalbumin:Creatinine Ratio 12.4 mg/g CRE (<30 mg/g CRE)
[2024-07-30 07:13] LABS: ALB/GLOB Ratio 1.4 RATIO (0.9-2.4); AST(SGOT) 18 U/L (15-37); Alanine Aminotransfer ALT/SGPT 17 U/L (13-56); Albumin, Serum 3.8 g/dL (3.2-5.0); Alkaline Phosphatase 52 U/L (45-117); Anion Gap 6 (5-15); BUN 14 mg/dL (7-18); BUN/Creat Ratio 24.3 RATIO (10-20); Calcium,Total 9.2 mg/dL (8.5-10.1); Chloride 103 mmol/L (98-107); Cholesterol 104 mg/dL (200); Creatinine, Serum 0.58 mg/dL (0.55-1.02); EST Glomerular Filtration Rate 110 mL/min (>60); Est Glom Filt Rate - Afr Amer 133 mL/min (>60); Ferritin 13 ng/mL (8-252); Globulin 2.8 g/dL (2.2-4.2); Glucose 112 mg/dL (74-106); High Density Lipoprotein 53 mg/dL; Potassium 3.7 mmol/L (3.5-5.1); Protein, Total 6.6 g/dL (6.4-8.2); Sodium Level 142 mmol/L (136-145); Triglycerides 91 mg/dL; Very Low Density Lipoprotein 18 mg/dL (5-40)
== END | disposition home or self-care (01) ==
PROVIDERS: PCP Family Medicine; Referring Provider Nurse Practitioner Family; Visit Provider Nurse Practitioner Family
DX: E11.65 Type 2 diabetes mellitus with hyperglycemia (principal); E55.9 Vitamin D deficiency, unspecified; R68.81 Early satiety
CPT/HCPCS: 36415; 80053; 80061; 82043; 82306; 82570; 82728; 84443; 85025

== ENCOUNTER → 2024-12-11 | Outpatient (CLI) | payer MEDICARE, OTHER, SELFPAY ==
--- NOTE | 2024-12-11 12:28 | US_ITS ---
PROCEDURE: THYROID 12/11/2024 REASON FOR EXAM: THYROID NODULE TECHNIQUE: THYROID COMPARISON: None FINDINGS: Right thyroid lobe size: 4.8 x 2.1 x 1.7 cm Left thyroid lobe size: 5 x 2.1 x 1.8 cm Isthmus: 0.3 cm Background parenchymal echotexture is homogeneous. Nodules: Right thyroid lobe : Hypoechoic nodule measuring 6 x 5 x 3 mm. Hypoechoic nodule measuring 4 x 4x4 mm with calcification. Hyperechoic nodule measuring 4 x 4 x 4 mm is noted. Left lobe: Hypoechoic nodule measuring 6 x 7 x 5 mm. Heterogenous isoechoic nodule measuring 20x17 x 17 mm US/Thyroid IMPRESSION: Right thyroid TR4 nodules. Left throid lobe TR3 and TR4 nodules. Reading Location: [place] [id number]
== END | disposition home or self-care (01) ==
LOC: OPUS 12:27
PROVIDERS: PCP Family Medicine; Referring Provider Nurse Practitioner Family; Visit Provider Nurse Practitioner Family
DX: E04.1 Nontoxic single thyroid nodule (principal)
CPT/HCPCS: 76536

== ENCOUNTER → 2025-01-29 | Outpatient (CLI) | payer MEDICARE, OTHER, SELFPAY ==
--- NOTE | 2025-01-29 13:10 | FLU_PTH ---
PATIENT: WALDO YUEN LOC: [facility] U#:[id number] AGE/SX: 69/F ROOM: RE01/29/[address]: Dr. Chay Veras MD : 1955 BED: DIS: 01/29/2025 SPEC #: [id number] RECD: 01/29/25 15:42 STATUS: RUBINA RENohemy #: [id number] SHAE: 01/29/25 13:[address]: Chay Veras DEPT: CYTOLOGY RECD BY: Jas Hoffmann ENTERED: 01/30/25 09:52 SP TYPE: Fluid OTHR DR: Dr. Dinah Hudson MD Tissues: A - Thyroid gland, NOS Procedures: Pap Stain (control) Special Stain Group II Diff Quik Stain (control) Cytospin Fluid Cytology Other HEADER OPERATION: Fine needle aspiration of left thyroid nodule PRE-OP DIAGNOSIS: Left thyroid nodule TISSUE SUBMITTED: A- Left thyroid nodule DIAGNOSIS CYTOLOGY A. Left thyroid, nodule, FNA (cytospin, smear x4): - Atypical cells of undetermined significance (TBS III). COMMENT Afirma testing is submitted. CYTOLOGY STUDY Slides are reviewed. CYTOLOGY GROSS A. Received is 30 ml of cytolyt with particles and 4 slides labeled with the patient's name and and designated per the requisition as Left thyroid nodule. Submitted for cytology and cytospin. 01/30/2025 CPT: 10204 ADDENDUM ADDENDUM ADDENDUM ADDENDUM ADDENDUM ADDENDUM ADDENDUM ADDENDUM ADDENDUM ADDENDUM 02/17/2025 10:34 ADDENDUM 02/17/2025 10:34 ADDENDUM 02/17/2025 10:34 ADDENDUM 02/17/2025 10:34 ADDENDUM 02/17/2025 10:34 AFIRMA RESULTS REPORT RESULTS INTERPRETATION: The result of this 2.0 cm Vivian III nodule A is Afirma GSC benign, which suggests a low risk of cancer of approximately 4%. Treatment like a cytologically benign nodule may be appropriate, including clinical correlation. Afirma XA is not performed on [facility] Benign nodules. TERT promoter region analysis is not performed on [facility] Benign nodules. Please see complete report in e-chart or EMR
== END | disposition home or self-care (01) ==
LOC: LABSPEC 15:49
PROVIDERS: PCP Family Medicine; Referring Provider Surgery; Visit Provider Surgery
DX: E04.1 Nontoxic single thyroid nodule (principal)
CPT/HCPCS: 88108; 88161; 88305; 88313

== ENCOUNTER → 2025-02-27 | Outpatient (CLI) | payer MEDICARE, OTHER, SELFPAY ==
[2025-02-27 09:31] LABS: Hematocrit 42.6 % (37-47); Hemoglobin 14.4 g/dL (12.0-15.0); Immature Granulocytes Count 0.010 X10^3/uL (0.0-0.0); Mean Corp Hgb Conc 33.8 g/dL (32-36); Mean Corpuscular Volume 90.1 fL (81-99); Mean Platelet Vol. 10.6 fl (6.2-12.0); NRBC Flagged by Analyzer 0 % (0-5); Platelet Count 207 K/mm3 (150-450); RBC Distribution Width CV 13.2 % (11.6-14.6); RBC Distribution Width SD 43.9 fl (35.1-43.9); Red Blood Count 4.73 M/mm3 (4.2-5.4); White Blood Count 5.1 K/mm3 (4.4-11.0)
[2025-02-27 10:15] LABS: AST(SGOT) 20 U/L (<=31); Alanine Aminotransfer ALT/SGPT 10 U/L (<=34); Albumin, Serum 4.0 g/dL (3.4-4.8); Alkaline Phosphatase 52 U/L (35-104); Anion Gap 19 (5-15); BUN 14 mg/dL (4-19); BUN/Creat Ratio 21.2 RATIO (10-20); Calcium,Total 8.9 mg/dL (7.6-11.0); Carbon Dioxide 19.1 mmol/L (21.0-32.0); Chloride 102 mmol/L (98-108); Cholesterol 122 mg/dL (<=200); Globulin 1.3 g/dL (2.2-4.2); Glucose 93 mg/dL (70-99); Low Density Lipoprotein Calc. 47 mg/dL; Potassium 3.9 mmol/L (3.3-5.1); Triglycerides 147 mg/dL; Very Low Density Lipoprotein 29 mg/dL (5-40); cholesterol:hdl ratio screen 2.68
[2025-02-28 04:07] LABS: LDL, Direct 120295 53 mg/dL (0-99)
== END | disposition home or self-care (01) ==
PROVIDERS: PCP Family Medicine; Referring Provider Family Medicine; Visit Provider Family Medicine
DX: I10 Essential (primary) hypertension (principal); E11.21 Type 2 diabetes mellitus with diabetic nephropathy; E78.00 Pure hypercholesterolemia, unspecified; D50.9 Iron deficiency anemia, unspecified
CPT/HCPCS: 36415; 80053; 80061; 83721; 85025